=== PATIENT | male | born 1960 | race Caucasian/White ===

== ENCOUNTER → 2018-01-19 12:01 | Outpatient (CLI) | payer MEDICARE, MEDICAID, SELFPAY ==
[2018-01-19 14:01] LABS: Absolute Lymphocyte Count 1.93 X10^3/ul (0.83-4.51); Absolute Neutrophil Count 5.4 X10^3/uL (2.0-7.7); Basophil# 0.04 X10^3/uL; Basophil% 0.5 % (0-1); Eosinophil# 0.21 X10^3/uL; Eosinophils% 2.6 % (0-5); Hematocrit 43.6 % (40-54); Hemoglobin 14.8 g/dl (13.0-16.5); Lymphocyte # 1.93 X10^3/ul (4.0); Lymphocyte % 23.5 % (19-41); Mean Corp Hgb Conc 33.9 g/gl (32-36); Mean Corpuscular Hgb 31.8 pg (27.0-32.0); Mean Corpuscular Volume 93.6 fL (80-94); Mean Platelet Vol. 9.3 fl (6.2-12.0); Monocyte# 0.55 X10^3/uL; Monocyte% 6.7 % (0-10); Neutrophil # 5.43 X10^3/uL (2.7-7.7); Neutrophil % 66.1 % (47-70); Platelet Count 314 K/mm3 (150-450); RBC Distribution Width CV 12.9 % (11.6-14.6); Red Blood Count 4.66 M/mm3 (4.6-6.2); White Blood Count 8.2 K/mm3 (4.4-11.0)
[2018-01-19 14:03] LABS: POSITIVE COUNT NO; POSITIVE DIFFERENTIAL NO; POSITIVE MORPHOLOGY NO
[2018-01-19 17:55] LABS: ALB/GLOB Ratio 0.8 RATIO (0.9-2.4); AST(SGOT) 18 U/L (15-37); Alanine Aminotransfer ALT/SGPT 27 U/L (16-61); Albumin, Serum 3.7 g/dL (3.2-5.0); Alkaline Phosphatase 86 U/L (45-117); Anion Gap 9 (5-15); BUN 14 mg/dL (7-18); BUN/Creat Ratio 15.3 RATIO (10-20); Calcium,Total 9.1 mg/dL (8.5-10.1); Chloride 100 mmol/L (98-107); Creatinine, Serum 0.92 mg/dL (0.70-1.30); EST Glomerular Filtration Rate 91 mL/min (>60); Est Glom Filt Rate - Afr Amer 110 mL/min (>60); Globulin 4.8 g/dL (2.2-4.2); Glucose 219 mg/dL (74-106); PSA,Total - Annual Screen 0.54 ng/mL (0.00-4.00); Potassium 4.2 mmol/L (3.5-5.1); Protein, Total 8.5 g/dL (6.4-8.2); Sodium Level 138 mmol/L (136-145); Thyroid Stim Hormone (TSH) 1.34 uIU/mL (0.358-3.74)
[2018-01-20 08:18] LABS: Hep C Antibodies 0.2 s/co ratio (0.0-0.9)
== END ==
PROVIDERS: Family Provider Family Medicine Geriatric Medicine; PCP Family Medicine Geriatric Medicine; Visit Provider Family Medicine Geriatric Medicine
DX: E11.9 Type 2 diabetes mellitus without complications (principal); I10 Essential (primary) hypertension; Z13.89 Encounter for screening for other disorder; Z12.5 Encounter for screening for malignant neoplasm of prostate
CPT/HCPCS: 36415; 80053; 84153; 84443; 85025; 86803; G0103

== ENCOUNTER → 2018-09-21 14:18 | Outpatient (CLI) | payer MEDICARE, MEDICAID, SELFPAY ==
[2018-01-31 10:20] VITALS: BMI 29.4
[2018-09-21 15:53] LABS: Absolute Lymphocyte Count 1.53 X10^3/ul (0.83-4.51); Absolute Neutrophil Count 6.6 X10^3/uL (2.0-7.7); Basophil# 0.02 X10^3/uL; Basophil% 0.2 % (0-1); Eosinophil# 0.18 X10^3/uL; Hematocrit 41.3 % (40-54); Hemoglobin 13.6 g/dl (13.0-16.5); Lymphocyte # 1.53 X10^3/ul (4.0); Lymphocyte % 17.2 % (19-41); Mean Corp Hgb Conc 32.9 g/gl (32-36); Mean Corpuscular Hgb 30.7 pg (27.0-32.0); Mean Corpuscular Volume 93.2 fL (80-94); Mean Platelet Vol. 9.3 fl (6.2-12.0); Monocyte# 0.61 X10^3/uL; Monocyte% 6.8 % (0-10); Neutrophil # 6.56 X10^3/uL (2.7-7.7); Neutrophil % 73.7 % (47-70); Platelet Count 319 K/mm3 (150-450); RBC Distribution Width CV 13.5 % (11.6-14.6); RBC Distribution Width SD 45.6 fl (35.1-43.9); Red Blood Count 4.43 M/mm3 (4.6-6.2); White Blood Count 8.9 K/mm3 (4.4-11.0)
[2018-09-21 16:13] LABS: POSITIVE COUNT NO; POSITIVE DIFFERENTIAL NO; POSITIVE MORPHOLOGY NO
[2018-09-21 16:28] LABS: ALB/GLOB Ratio 0.8 RATIO (0.9-2.4); AST(SGOT) 18 U/L (15-37); Alanine Aminotransfer ALT/SGPT 25 U/L (16-61); Albumin, Serum 3.6 g/dL (3.2-5.0); Alkaline Phosphatase 83 U/L (45-117); Anion Gap 8 (5-15); BUN 17 mg/dL (7-18); BUN/Creat Ratio 20.8 RATIO (10-20); Calcium,Total 8.4 mg/dL (8.5-10.1); Chloride 102 mmol/L (98-107); Cholesterol 106 mg/dL (200); Creatinine, Serum 0.82 mg/dL (0.70-1.30); EST Glomerular Filtration Rate 103 mL/min (>60); Est Glom Filt Rate - Afr Amer 125 mL/min (>60); Globulin 4.6 g/dL (2.2-4.2); Glucose 210 mg/dL (74-106); High Density Lipoprotein 33 mg/dL; Potassium 4.3 mmol/L (3.5-5.1); Protein, Total 8.2 g/dL (6.4-8.2); Sodium Level 135 mmol/L (136-145); Thyroid Stim Hormone (TSH) 1.16 uIU/mL (0.358-3.74); Triglycerides 155 mg/dL; Very Low Density Lipoprotein 31 mg/dL (5-40)
--- OUTSIDE RECORDS SUMMARY | 2018-11-07 19:12 | XMS RPT_ITS ---
:1960 Author Organization OHIP Care Team Providers Name Role Phone Ruben, Chinedu Chi Attending Unavailable Ruben, Chinedu Chi Primary Care Unavailable Joelle Phillips Attending Unavailable Ruben, Chinedu Chi Referring Unavailable Ruben, Chinedu Chi Attending Unavailable Ruben, Chinedu Chi Primary Care Unavailable Jayy Ga Attending Unavailable Ruben, Chinedu Chi Referring Unavailable Eduardo Paz H Attending Unavailable Ruben, Chinedu Chi Referring Unavailable Ruben, Chinedu Chi Primary Care Unavailable Ragini Reynoso Attending Unavailable PROBLEMS PROBLEMS DATE TYPE CONDITION / CODE ATTENDING STATUS SOURCE Unknown I48.0 - Paroxysmal atrial [place], Active [place] 8 fibrillation / Jayy Community I48.0(ICD-10) Hospital Repository Unknown R55 - Syncope and Eduardo Paz Active [place] 8 collapse / R55(ICD-10) [facility] Repository Unknown I10 - Essential (primary) RoofEduardo Active [place] 8 hypertension / Community I10(ICD-10) Hospital Repository Unknown E78.00 - Pure Roof, Eduardo Higginbotham Active [place] 8 hypercholesterolemia, Community unspecified / Hospital E78.00(ICD-10) Repository Unknown E78.0 - Pure RoofEduardo Active [place] 8 hypercholesterolemia / Community E78.0(ICD-10) Hospital Repository Unknown I34.0 - Nonrheumatic Eduardo Paz Active [place] 8 mitral (valve) Community insufficiency / Hospital I34.0(ICD-10) Repository Unknown E11.9 - Type 2 diabetes Eduardo Paz Active [place] 8 mellitus without Community complications / Hospital E11.9(ICD-10) Repository PROCEDURES PROCEDURES No Procedure Records FoundRESULTS RESULTS CBC W/DIFF, AUTOMATED Collected: 09/21/2018 Status: F Source: [place] 2:20 PM [facility] REPOSITORY TYPE CODE TESTS RESULT OUT OF RANGE REFERENCE UNITS LAB L100.1000 4.4-11.0 K/mm3 Normal WBC 8.9 LAB L100.1200 4.6-6.2 M/mm3 Low RBC 4.43 LAB L100.1300 13.0-16.5 g/dl Normal HGB 13.6 LAB L100.1400 40-54 % Normal HCT 41.3 LAB L100.1500 80-94 fL Normal MCV 93.2 LAB L100.1600 27.0-32.0 pg Normal MCH 30.7 LAB L100.1700 32-36 g/gl Normal MCHC 32.9 LAB L100.1810 11.6-14.6 % Normal RDW CV 13.5 LAB L100.1820 35.1-43.9 fl High RDW SD 45.6 LAB L100.1900 150-450 K/mm3 Normal PLT 319 LAB L100.2000 6.2-12.0 fl Normal MPV 9.3 LAB L100.2100 47-70 % High NEUT% 73.7 LAB L100.2200 19-41 % Low LY% 17.2 LAB L100.2300 0-10 % Normal MONO% 6.8 LAB L100.2400 0-5 % Normal EO% 2.0 LAB L100.2500 0-1 % Normal BASO% 0.2 LAB L100.2550 0.0-0.9 % Normal IM GRAN % 0.100 Result Comment: IG% - Immature Granulocytes (promyelocytes, myelocytes and metamyelocytes) > 1% indicates that a LEFT SHIFT is Present. LAB L100.2620 2.0-7.7 X10 3/uL Normal Absolute Neut 6.6 LAB L100.2720 0.83-4.51 X10 3/ul Normal Absolute Lymph 1.53 Performed By: #### L100.0100 #### [facility] [address] [place], [place], [id number] COMPREHENSIVE METABOLIC Collected: 09/21/2018 Status: F Source: [place] MILLER 2:20 PM [facility] REPOSITORY TYPE CODE TESTS RESULT OUT OF RANGE REFERENCE UNITS LAB L501.0100 74-106 mg/dL High GLU 210 Result Comment: Glucose result greater than or equal to 200 mg/dL suggests DIABETES MELLITUS per A.D.A. criteria. Please note revised GLUCOSE reference range effective 2017. LAB L501.1000 7-18 mg/dL Normal BUN 17 LAB L501.1100 0.70-1.30 mg/dL Normal CREAT,SERUM 0.82 Result Comment: The validity of the calculated GFR AND GFRAA in patients over 70 years has not been determined. Clinical correlation is essential. LAB L501.1110 >60 mL/min Normal EST GFR 103 Result Comment: Non- GFR Calc LAB L501.1115 >60 mL/min Normal EST GFR - AA 125 Result Comment: GFR Calc LAB L501.1300 10-20 RATIO High BUN/CRE 20.8 LAB L501.1500 6.4-8.2 g/dL T Normal PROT 8.2 LAB L501.1800 3.2-5.0 g/dL Normal ALB 3.6 LAB L501.1950 2.2-4.2 g/dL High GLOB 4.6 LAB L501.2000 0.9-2.4 RATIO Low A/G 0.8 LAB L501.2200 8.5-10.1 mg/dL Low CA 8.4 LAB L501.4100 15-37 U/L Normal AST 18 LAB L501.4305 45-117 U/L Normal ALK P 83 LAB L501.4405 16-61 U/L Normal ALT 25 LAB L501.4600 0.20-1.00 mg/dL T Normal BILI 0.50 LAB L501.5300 136-145 mmol/L Low NA 135 LAB L501.5600 3.5-5.1 mmol/L K Normal 4.3 LAB L501.5900 98-107 mmol/L CL Normal 102 LAB L501.6100 21.0-32.0 mmol/L Normal CO2 25.0 LAB L501.6200 5-15 Normal GAP 8 Performed By: #### L500.4050, L500.4100, L501.9520 #### [facility] [address] [place], [place], [address] LIPID PROFILE Collected: 09/21/2018 Status: F Source: [place] 2:20 PM [facility] REPOSITORY TYPE CODE TESTS RESULT OUT OF RANGE REFERENCE UNITS LAB L501.4900 200 mg/dL Normal CHOL 106 Result Comment: <200 mg/dL Desirable 200-240 mg/dL Borderline >240 mg/dL High Risk LAB L501.5000 mg/dL Normal TRIG 155 Result Comment: The drugs N-Acetylcysteine and Metamizole may falsely depress this assay. Serum Triglycerides Reference Interval Normal <150 mg/dL Borderline high 150 - 199 mg/dL High 200 - 499 mg/dL Very High > or = 500 mg/dL LAB L501.6400 mg/dL Low HDL 33 Result Comment: The drugs N-Acetylcysteine and Metamizole may falsely depress this assay. Reference Range HDL <40 mg/dL Low HDL Cholesterol HDL >or= 60 mg/dL High HDL Cholesterol LAB L501.6500 0-130 mg/dL Normal LDL 42 LAB L501.6600 5-40 mg/dL Normal VLDL 31 Performed By: #### L500.4050, L500.4100, L501.9520 #### [facility] [address] [place], [place], [id number] THYROID STIM HORMONE Collected: 09/21/2018 Status: F Source: MA[place]ESH (TSH) 2:20 PM [facility] REPOSITORY TYPE CODE TESTS RESULT OUT OF RANGE REFERENCE UNITS LAB L501.9520 0.358-3.74 uIU/mL Normal TSH 1.16 Performed By: #### L500.4050, L500.4100, L501.9520 #### [facility] [address] [place], [place], [address] OFFICE VISIT REPORT Observed: 02/04/2018 Status: F Source: MA[place]ESH 3:19 PM [facility] REPOSITORY [facility] [address] [place] [address] OFFICE VISIT Date of Service: 02/04/18 MR#: [id number] Acct: [id number] Patient: AMNA HINSON Rep #: [id number] : 1960 Provider: Jayy Ga MD Age/Sex: 57/M Location: [facility] Status: Signed Intake Intake Visit Reasons: repeat EKG Allergies No Known Allergies Allergy (Verified 01/31/18 10:22) Medications aspirin 81 mg tablet,delayed release 81 mg PO QDAY tab 12/09/17 [History Confirmed 01/31/18] fenofibrate nanocrystallized 145 mg tablet 145 mg PO QDAY 12/09/17 [History Confirmed 01/31/18] levothyroxine 25 mcg tablet 25 mcg PO QDAY tab 12/09/17 [History Confirmed 01/31/18] metformin 1,000 mg tablet 1,000 mg PO BID 12/09/17 [History Confirmed 01/31/18] omeprazole 40 mg capsule,delayed release 40 mg PO QDAY 12/09/17 [History Confirmed 01/31/18] simvastatin 80 mg tablet 80 mg PO QDAY 12/09/17 [History Confirmed 01/31/18] sotalol 80 mg tablet 80 mg PO QDAY 12/09/17 [History Confirmed 01/31/18] Assessment AND Plan Orders Orders: Nursing Note Patient is here today for a repeat EKG due to misplacement of V1 AND V2 leads from last office visit. 02/04/18 1519 <Electronically signed by Jayy Ga MD> Date Jayy Ga MD Cosigner Signature: Date (if applicable) CC: 12 LEAD EKG PERFORMED Observed: 02/04/2018 Status: F Source: MAHESH BY POONAM 9:40 AM [facility] REPOSITORY [address] [place] [place] [address] 12 Lead EKG performed by POONAM 02/04/18 0939 MR#: [id number] Acct: [id number] Name: AMNA HINSON Rep #: [id number] : 1960 57 From: Jayy Ga MD Attending Dr: Jayy Ga MD Status: DEP AMB Ordering Dr: Jayy Ga MD Date: 02/04/18 Location: [facility] Sex: M C Admitted: [facility]12 Lead EKG performed by [facility] ECG Report Interpretation Sinus Rhythm Electronically signed on 02/04/2018 at 14:01 by Jayy Ga 02/04/18 1407 Date Jayy Ga MD CC: Chinedu Miranda MD Date Dictated: 02/04/18938 Date Transcribed: 02/04/18938 Ironworker Machine Operator: PM Signed CARDIOLOGY VISIT Observed: 01/31/2018 Status: F Source: [facility] RE[facility] 12:55 PM [facility] REPOSITORY [address] [place], [place] [address] OFFICE VISIT Date of Service: 01/31/18 MR#: [id number] Acct: [id number] Name: AMNA HINSON Rep #: [id number] : 1960 Provider: AMOS Paz Age/Sex: 57/M Location: [facility] Status: Signed HPI HPI Details: AMNA HINSON, is a 57 M who presents to the office today for a cardiovascular outpatient follow-up. He has a history of paroxysmal atrial fibrillation, syncope, mitral valve regurgitation, hypertension, hyperlipidemia, and diabetes. Pt. denies chest, arm, jaw, or neck discomfort. His exercise tolerance is stable via swimming daily. Pt. denies symptoms of CHF, palpitations, lightheadedness, dizziness, near syncope, or syncopal episodes. Pt. denies edema or claudication issues. Pt. denies orthopnea, PND, fever, chills, blood in urine, blood in stool, myalgia, or unexplainable fatigue. 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 Accompanied by: none Is patient in pain?: No Allergies No Known Allergies Allergy (Verified 01/31/18 10:22) Medications aspirin 81 mg tablet,delayed release 81 mg PO QDAY tab 12/09/17 [History Confirmed 01/31/18] fenofibrate nanocrystallized 145 mg tablet 145 mg PO QDAY 12/09/17 [History Confirmed 01/31/18] levothyroxine 25 mcg tablet 25 mcg PO QDAY tab 12/09/17 [History Confirmed 01/31/18] metformin 1,000 mg tablet 1,000 mg PO BID 12/09/17 [History Confirmed 01/31/18] omeprazole 40 mg capsule,delayed release 40 mg PO QDAY 12/09/17 [History Confirmed 01/31/18] simvastatin 80 mg tablet 80 mg PO QDAY 12/09/17 [History Confirmed 01/31/18] sotalol 80 mg tablet 80 mg PO QDAY 12/09/17 [History Confirmed 01/31/18] Ejection fraction %: 65 to 70 PFSH Medical History Hyperlipidemia (Chronic) Paroxysmal atrial fibrillation (Chronic) 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 Other Family history of hypertension Social History Smoking Status: Never smoker alcohol intake: never substance use type: does not use caffeine: No what type of physical activity do you participate in: swimming frequency: 1-2 times per week seatbelt use: always do you feel safe at home: Yes ROS Const Const: Negative for fatigue, weakness, body ache, fever(s) or chills ENT ENT: Negative for dizziness Cardio Chest Pain: No Palpitations: No Edema: None Muscle aches with walking: None Resp Respiratory: Negative for SOB with activity, SOB at rest, SOB orthopnea\SOB lying down or paroxysmal nocturnal dyspnea GI GI: Negative nausea, black,tarry stools, bright, red blood in stools or vomiting blood/hematemesis : Negative for hematuria or frequent nighttime urination/ nocturia Musc Musc: Negative for muscle aches/ myalgia Neuro Neuro: Negative for weakness, dizziness, lightheadedness, near syncope, syncope or orthostatic symptoms Endo Endo: Negative for fatigue Cardiology Exam Const Appearance: cooperative, healthy appearing, comfortable and no acute distress Orientation: alert, awake and oriented x3 Head Head: normal to inspection Mouth: oral mucosae normal Neck Neck: no JVD and normal visual inspection Carotids: normal carotid upstroke Chest Chest inspection: normal inspection of the chest and normal respiratory effort Auscultation: Bilateral: Clear to Auscultation Cardio Rate: regular rate Rhythm: regular rhythm Heart sounds: S1 normal and S2 normal; negative rub or gallop GI GI: normal to inspection Neuro General: alert, awake, oriented x3 and CN's II-XI intact bilaterally Skin Skin: no rashes or lesions noted Extremities Pulses: Normal: Right Posterior Tibial Pulse, Left Posterior Tibial Pulse, Right Radial Pulse, Left Radial Pulse Lower Extremity Edema: None: Bilateral Psych Psychological: normal affect Supplemental Info Echocardiogram from December 2007 showed an estimated ejection fraction of 65%, mild diffuse mitral valve thickening, mild mitral valve insufficiency, trivial tricuspid valve insufficiency, trivial pulmonic valve insufficiency, and an RVSP of 27 mmHg. Stress test from February 2002 was considered negative stress echocardiogram. Assessment AND Plan 1. Paroxysmal atrial fibrillation I48.0 Plan Patient's EKG done in office today showed sinus rhythm at a rate of 75 bpm. Patient will continue current medication which include antiarrhythmic. We will continue to monitor this. Orders Orders: 2. Syncope, unspecified syncope type R55 Plan Patient denies any recurrence of this. His blood pressure and heart rate are well-controlled today in office. We will continue to monitor this. 3. Essential hypertension I10 Plan Patient's blood pressure is well-controlled today in the office. We will continue to monitor this. We will not make any medication regimen changes. 4. Pure hypercholesterolemia E78.00; E78.0 Plan Patient's lipid panel from June 2017 show cholesterol: 111, HDL: 36, LDL: 2, and triglycerides: 363. Patient will repeat both liver and lipid profile at his earliest convenience. He will continue with current cholesterol-lowering medications. We will wait for results of these tests for further recommendation. 5. Nonrheumatic mitral valve regurgitation I34.0 Plan Echocardiogram from December 2017 showed estimated ejection fraction of 65%, mild diffuse mitral thickening, and mild mitral valve insufficiency. Patient denies any shortness of breath or activity intolerance. We will continue to monitor this through history, exam, and repeat echocardiogram. Patient will continue with current medications. 6. Type 2 diabetes mellitus without complication, without long-term current use of insulin E11.9 Plan Patient will continue to follow-up with primary care physician for this. Plan Detail Additional Comments Thank you for allowing us to participate in the patients plan of care, if you have any questions please do not hesitate to call. This note was generated using a voice recognition system and there may be incorrect words, spelling or punctuation that were not noted when reviewing the office note prior to saving. Follow Up 12 Months (PFM) Coding Level of Care Code Off vis,est,level 3 Diagnoses Paroxysmal atrial fibrillation I48.0 Syncope, unspecified syncope type R55 Syncope type: unspecified Essential hypertension I10 Hypertension type: essential hypertension Pure hypercholesterolemia E78.00; E78.0 Hyperlipidemia type: pure hypercholesterolemia Nonrheumatic mitral valve regurgitation I34.0 Type 2 diabetes mellitus without complication, without long- term current use of insulin E11.9 Diabetes mellitus type: type 2 Diabetes mellitus assistant terminal manager insulin use: without fpc use Diabetes mellitus complication status: without complication Coding Level of Care Code Off vis,est,level 3 Diagnoses Paroxysmal atrial fibrillation I48.0 Syncope, unspecified syncope type R55 Syncope type: unspecified Essential hypertension I10 Hypertension type: essential hypertension Pure hypercholesterolemia E78.00; E78.0 Hyperlipidemia type: pure hypercholesterolemia Nonrheumatic mitral valve regurgitation I34.0 Type 2 diabetes mellitus without complication, without long- term current use of insulin E11.9 Diabetes mellitus type: type 2 Diabetes mellitus fpc insulin use: without assistant terminal manager use Diabetes mellitus complication status: without complication 01/31/18 1255 <Electronically signed by Eduardo WRAY> Date Eduardo WRAY Cosigner Signature: Date (if applicable) CC: Chinedu Miranda MD 12 LEAD EKG PERFORMED Observed: 01/31/2018 Status: F Source: [place] BY [facility] 10:03 AM [facility] REPOSITORY [facility] [address] [place] [address] 12 Lead EKG performed by [facility] 01/31/18 1003 MR#: [id number] Acct: [id number] Name: AMNA HINSON Rep #: [id number] : 1960 57 From: Eduardo Paz LSW-C Attending Dr: Eduardo Paz NP Status: DEP AMB Ordering Dr: Eduardo PazC Date: 01/31/18 Location: [facility] Sex: M C Admitted: [facility]/12 Lead EKG performed by [facility] ECG Report Interpretation Sinus Rhythm Consider precordial lead misplacement (V1-V2)Consider repeat ECG ABNORMAL Electronically signed on 02/02/2018 at 17:17 by Jayy Ga 02/02/18 5331 Date Eduardo Paz LSW-C CC: Chinedu Miranda MD Date Dictated: 01/31/18 100 Date Transcribed: 01/31/18 100 Ironworker Machine Operator: LENORE Signed CBC W/DIFF, AUTOMATED Collected: 01/19/2018 Status: F Source: [place] 12:04 PM [facility] REPOSITORY TYPE CODE TESTS RESULT OUT OF RANGE REFERENCE UNITS LAB L100.1000 4.4-11.0 K/mm3 Normal WBC 8.2 LAB L100.1200 4.6-6.2 M/mm3 Normal RBC 4.66 LAB L100.1300 13.0-16.5 g/dl Normal HGB 14.8 LAB L100.1400 40-54 % Normal HCT 43.6 LAB L100.1500 80-94 fL Normal MCV 93.6 LAB L100.1600 27.0-32.0 pg Normal MCH 31.8 LAB L100.1700 32-36 g/gl Normal MCHC 33.9 LAB L100.1810 11.6-14.6 % Normal RDW CV 12.9 LAB L100.1820 35.1-43.9 fl Normal RDW SD 43.0 LAB L100.1900 150-450 K/mm3 Normal PLT 314 LAB L100.2000 6.2-12.0 fl Normal MPV 9.3 LAB L100.2100 47-70 % Normal NEUT% 66.1 LAB L100.2200 19-41 % Normal LY% 23.5 LAB L100.2300 0-10 % Normal MONO% 6.7 LAB L100.2400 0-5 % Normal EO% 2.6 LAB L100.2500 0-1 % Normal BASO% 0.5 LAB L100.2550 0.0-0.9 % Normal IM GRAN % 0.600 Result Comment: IG% - Immature Granulocytes (promyelocytes, myelocytes and metamyelocytes) > 1% indicates that a LEFT SHIFT is Present. LAB L100.2620 2.0-7.7 X10 3/uL Normal Absolute Neut 5.4 LAB L100.2720 0.83-4.51 X10 3/ul Normal Absolute Lymph 1.93 Performed By: #### L100.0100 #### [facility] [address] [place], [place], [address] COMPREHENSIVE METABOLIC Collected: 01/19/2018 Status: F Source: [facility] 12:04 PM [facility] REPOSITORY TYPE CODE TESTS RESULT OUT OF RANGE REFERENCE UNITS LAB L501.0100 74-106 mg/dL High GLU 219 Result Comment: Glucose result greater than or equal to 200 mg/dL suggests DIABETES MELLITUS per A.D.A. criteria. Please note revised GLUCOSE reference range effective 2017. LAB L501.1000 7-18 mg/dL Normal BUN 14 LAB L501.1100 0.70-1.30 mg/dL Normal CREAT,SERUM 0.92 Result Comment: The validity of the calculated GFR AND GFRAA in patients over 70 years has not been determined. Clinical correlation is essential. LAB L501.1110 >60 mL/min Normal EST GFR 91 Result Comment: Non- GFR Calc LAB L501.1115 >60 mL/min Normal EST GFR - AA 110 Result Comment: GFR Calc LAB L501.1300 10-20 RATIO Normal BUN/CRE 15.3 LAB L501.1500 6.4-8.2 g/dL High T PROT 8.5 LAB L501.1800 3.2-5.0 g/dL Normal ALB 3.7 LAB L501.1950 2.2-4.2 g/dL High GLOB 4.8 LAB L501.2000 0.9-2.4 RATIO Low A/G 0.8 LAB L501.2200 8.5-10.1 mg/dL CA Normal 9.1 LAB L501.4100 15-37 U/L Normal AST 18 LAB L501.4305 45-117 U/L Normal ALK P 86 LAB L501.4405 16-61 U/L Normal ALT 27 Result Comment: Please note revised ALT reference range effective 2017. LAB L501.4600 0.20-1.00 mg/dL Normal T BILI 0.30 LAB L501.5300 136-145 mmol/L Normal NA 138 LAB L501.5600 3.5-5.1 mmol/L Normal K 4.2 LAB L501.5900 98-107 mmol/L Normal CL 100 LAB L501.6100 21.0-32.0 mmol/L Normal CO2 29.0 LAB L501.6200 5-15 Normal GAP 9 Performed By: #### L500.4050, L501.9520, L501.9910 #### [facility] [address] [place], [place], [id number] THYROID STIM HORMONE Collected: 01/19/2018 Status: F Source: [facility] (TSH) 12:04 PM [facility] REPOSITORY TYPE CODE TESTS RESULT OUT OF RANGE REFERENCE UNITS LAB L501.9520 0.358-3.74 uIU/mL Normal TSH 1.34 Performed By: #### L500.4050, L501.9520, L501.9910 #### [facility] [address] [place], [place], [address] PSA,TOTAL - ANNUAL Collected: 01/19/2018 Status: F Source: [place] SCREEN 12:04 PM [facility] REPOSITORY TYPE CODE TESTS RESULT OUT OF RANGE REFERENCE UNITS LAB L501.9910 0.00-4.00 ng/mL Normal PSA,TOT 0.54 SCREEN Result Comment: This test was performed using the TPSA assay method for the Search[employer] chemistry system. Values obtained with different assay methods cannot be used interchangably. When changing PSA assays in the course of monitoring a patient, additional sequential testing should be carried out to confirm baseline values. Performed By: #### L500.4050, L501.9520, L501.9910 #### [facility] [address] [place], [address] HEPATITIS C ANTIBODIES Collected: 01/19/2018 Status: F Source: [place] 12:04 PM [facility] REPOSITORY TYPE CODE TESTS RESULT OUT OF RANGE REFERENCE UNITS LAB L3100.0650 0.0-0.9 s/co ratio Normal HEP C AB 0.2 Result Comment: Negative: < 0.8 Indeterminate: 0.8 - 0.9 Positive: > 0.9 The CDC recommends that a positive HCV antibody result be followed up with a HCV Nucleic Acid Amplification test (547997). Performed at: - [facility] [id number] Blunger Machine Operator: Prince Arciniega PhD, Phone: [phone] Performed By: #### L3100.0625 #### [facility] (refer to report for specific site) refer to report for address and phone number ALLERGIES ALLERGIES DATE TYPE / CODE NAME / CODE REACTION SEVERITY SOURCE 01/31/2018 Drug No Known Unknown [facility] Allergy/4160 Allergies/F00 Hospital 89000(SNOMED 5963852(RXNOR Repository CT) M) ENCOUNTERS ENCOUNTERS ADMIT/DISCHARGE ACCOUNT ADMITTING ENCOUNTER LOCATION SOURCE NUMBER CLASS 09/21/2018 [id number] Ambulatory [place] 4 [facility] ing:POLAB3 Repository 02/04/2018/ [id number] Ambulatory BMSBuilding:B [place] 8 4 [place] Repository 01/31/2018/ [id number] Ambulatory BMSBuilding:B [place] 8 6 [place] Repository 01/25/2018 [id number] Ambulatory BMS [place] 9 [facility] Repository 01/19/2018 [id number] Ambulatory [place] 7 [facility] ing:POLAB3 Repository 12/14/2017 [id number] Ambulatory BMSBuilding:B [place] 9 [place] Repository PAYERS PAYERS ENCOUNTER GUARANTOR PAYER SUBSCRIBER SOURCE 09/21/2018 AMNA A Primary AMNA [place] [id number] Insurance:HUMANA BUTLERDOB[facility] [id number] Number: Repository [address]Vih: 330 [id number] [phone] () Date:[id number] [address] [address]UR: 09/21/2018 Secondary AMNA A [place] Insurance:MEDICAIDPol BUTLERDOB: [facility] icy Number: [id number] Hospital [id number] Repository Date:2018-09-21 09/21/2018 Tertiary NOT GIVENUNK [place] Insurance:SELF PAY [facility] Number: Effective Repository Date:2018-09-21 02/04/2018 AMNA A Primary AMNA [place] [id number] Insurance:HUMANA BUTLERDOB: Community [place] MEDICARE PPOPolicy [id number] Number: Repository [id number]: 330 [id number] [phone] (HP) Date:[id number] [address] [address]PN: 02/04/2018 Secondary AMNA A [place] Insurance:MEDICAIDPol BUTLERDOB: [facility] icy Number: [id number] Hospital [id number] Repository Date:2018-02-03 02/04/2018 Tertiary NOT GIVENUNK [place] Insurance:SELF PAY [facility] Number: Effective Repository Date:2018-02-04 01/31/2018 AMNA A Primary AMNA [address] [id number] Insurance:HUMANA BUTLERDOB: Community [place] MEDIC[facility] [id number] Number: Repository [id number]: 330 [id number] [phone] (HP) Date:[id number] [address] [address]QL: 01/31/2018 Secondary AMNA A Mahesh Insurance:MEDICAIDPol BUTLERDOB: Community icy Number: [id number] [id number] Repository Date:2018-01-18 01/31/2018 Tertiary NOT GIVENUNK Mahesh Insurance:SELF PAY [facility] Number: Effective Repository Date:2018-01-31 01/25/2018 Amna A Primary Amna A Eaton [id number] Insurance:HUMANA ButlerDOB: [facility] MEDICARE [facility] [id number] Number[place] Repository [id number]: [phone] [id number] [phone] (HP) Date:[id number] [address] [address]SZ: 01/25/2018 Secondary Amna A Eaton Insurance:MEDICAIDPol ButlerDOB: Community icy Number: [id number] [id number] Repository Date:2018-01-25 01/25/2018 Tertiary NOT GIVENUNK [place] Insurance:SELF PAY [facility] Number: Effective Repository Date:2018-01-25 01/19/2018 Amna A Primary Amna A Eaton [id number] Insurance:HUMANA ButlerDOB: [facility] MEDICARE [facility] [id number] Number: Repository [id number]: [phone] [id number] [phone] (HP) Date:[id number] [address] [address]RM: 01/19/2018 Secondary Amna A Eaton Insurance:MEDICAIDPol ButlerDOB: Community icy Number: [id number] [facility] [id number] Repository Date:2018-01-19 01/19/2018 Tertiary NOT GIVENUNK Mahesh Insurance:SELF PAY [facility]: Effective Repository Date:2018-01-19 12/14/2017 Amna A Primary Amna Murray [id number] Insurance:HUMANA ButlerDOB: Community [facility] MEDICARE [facility] [id number] Number: Repository [id number]: [phone] [id number] [phone] () Date:[id number] [address]XR: 12/14/2017 Secondary Amna Murray Insurance:MEDICAIDPol ButlerDOB: Community icy Number: [id number] [id number] Repository Date:2017-09-16 12/14/2017 Tertiary NOT GIVENUNK Mahesh Insurance:SELF PAY [facility] Number: Effective Repository Date:2017-09-16
== END ==
PROVIDERS: Family Provider Family Medicine Geriatric Medicine; PCP Family Medicine Geriatric Medicine; Visit Provider Family Medicine Geriatric Medicine
DX: E11.9 Type 2 diabetes mellitus without complications (principal); E78.5 Hyperlipidemia, unspecified
CPT/HCPCS: 36415; 80053; 80061; 84443; 85025

== ENCOUNTER → 2018-12-21 13:26 | Outpatient (CLI) | payer MEDICARE, SELFPAY ==
[2018-01-31 10:20] VITALS: BMI 29.4
[2018-12-21 17:17] LABS: Absolute Lymphocyte Count 1.38 X10^3/ul (0.83-4.51); Absolute Neutrophil Count 4.7 X10^3/uL (2.0-7.7); Basophil# 0.03 X10^3/uL; Basophil% 0.4 % (0-1); Eosinophil# 0.18 X10^3/uL; Eosinophils% 2.6 % (0-5); Hematocrit 38.7 % (40-54); Hemoglobin 12.2 g/dl (13.0-16.5); Lymphocyte # 1.38 X10^3/ul (4.0); Lymphocyte % 20.2 % (19-41); Mean Corp Hgb Conc 31.5 g/gl (32-36); Mean Corpuscular Volume 95.1 fL (80-94); Mean Platelet Vol. 9.4 fl (6.2-12.0); Monocyte# 0.54 X10^3/uL; Monocyte% 7.9 % (0-10); Neutrophil # 4.69 X10^3/uL (2.7-7.7); Neutrophil % 68.8 % (47-70); Platelet Count 307 K/mm3 (150-450); RBC Distribution Width CV 13.6 % (11.6-14.6); RBC Distribution Width SD 46.5 fl (35.1-43.9); Red Blood Count 4.07 M/mm3 (4.6-6.2); White Blood Count 6.8 K/mm3 (4.4-11.0)
[2018-12-21 17:18] LABS: POSITIVE COUNT NO; POSITIVE DIFFERENTIAL NO; POSITIVE MORPHOLOGY NO
[2018-12-21 17:52] LABS: ALB/GLOB Ratio 0.7 RATIO (0.9-2.4); AST(SGOT) 14 U/L (15-37); Alanine Aminotransfer ALT/SGPT 19 U/L (16-61); Albumin, Serum 3.3 g/dL (3.2-5.0); Alkaline Phosphatase 74 U/L (45-117); Anion Gap 8 (5-15); BUN 13 mg/dL (7-18); BUN/Creat Ratio 15.7 RATIO (10-20); Calcium,Total 8.2 mg/dL (8.5-10.1); Chloride 104 mmol/L (98-107); Cholesterol 100 mg/dL (200); Creatinine, Serum 0.83 mg/dL (0.70-1.30); EST Glomerular Filtration Rate 102 mL/min (>60); Est Glom Filt Rate - Afr Amer 123 mL/min (>60); Globulin 4.7 g/dL (2.2-4.2); Glucose 186 mg/dL (74-106); High Density Lipoprotein 34 mg/dL; Sodium Level 139 mmol/L (136-145); Thyroid Stim Hormone (TSH) 0.88 uIU/mL (0.358-3.74); Triglycerides 122 mg/dL; Very Low Density Lipoprotein 24 mg/dL (5-40)
== END ==
PROVIDERS: Family Provider Family Medicine Geriatric Medicine; PCP Family Medicine Geriatric Medicine; Visit Provider Family Medicine Geriatric Medicine
DX: E11.9 Type 2 diabetes mellitus without complications (principal); I10 Essential (primary) hypertension; E78.5 Hyperlipidemia, unspecified
CPT/HCPCS: 36415; 80053; 80061; 84443; 85025

== ENCOUNTER → 2019-02-02 15:15 | Outpatient (CLI) | payer MEDICARE, SELFPAY ==
[2018-01-31 10:20] VITALS: BMI 29.4
[2019-05-03 11:27] LABS: Absolute Lymphocyte Count 1.59 X10^3/uL (0.83-4.51); Absolute Neutrophil Count 7.9 X10^3/uL (2.0-7.7); Basophil# 0.05 X10^3/uL; Basophil% 0.5 % (0-1); Eosinophil# 0.34 X10^3/uL; Eosinophils% 3.2 % (0-5); Hematocrit 40.3 % (40-54); Hemoglobin 13.1 g/dL (13.0-16.5); Lymphocyte # 1.59 X10^3/ul (4.0); Lymphocyte % 15.1 % (19-41); Mean Corp Hgb Conc 32.5 g/dL (32-36); Mean Corpuscular Volume 95.3 fL (80-94); Mean Platelet Vol. 9.3 fl (6.2-12.0); Monocyte% 5.7 % (0-10); NRBC Flagged by Analyzer 0 % (0-5); Neutrophil # 7.89 X10^3/uL (2.7-7.7); Neutrophil % 74.7 % (47-70); Platelet Count 356 K/mm3 (150-450); RBC Distribution Width CV 13.6 % (11.6-14.6); RBC Distribution Width SD 46.9 fl (35.1-43.9); Red Blood Count 4.23 M/mm3 (4.6-6.2); White Blood Count 10.6 K/mm3 (4.4-11.0)
[2019-05-03 11:56] LABS: ALB/GLOB Ratio 0.8 RATIO (0.9-2.4); AST(SGOT) 17 U/L (15-37); Alanine Aminotransfer ALT/SGPT 21 U/L (16-61); Albumin, Serum 2.9 g/dL (3.2-5.0); Alkaline Phosphatase 50 U/L (45-117); Anion Gap 4 (5-15); BUN 11 mg/dL (7-18); BUN/Creat Ratio 15.2 RATIO (10-20); Calcium,Total 8.1 mg/dL (8.5-10.1); Chloride 105 mmol/L (98-107); Cholesterol 73 mg/dL (200); Creatinine, Serum 0.72 mg/dL (0.70-1.30); EST Glomerular Filtration Rate 119 mL/min (>60); Est Glom Filt Rate - Afr Amer 144 mL/min (>60); Globulin 3.8 g/dL (2.2-4.2); Glucose 50 mg/dL (74-106); High Density Lipoprotein 31 mg/dL; Potassium 3.6 mmol/L (3.5-5.1); Protein, Total 6.7 g/dL (6.4-8.2); Sodium Level 140 mmol/L (136-145); Triglycerides 86 mg/dL; Very Low Density Lipoprotein 17 mg/dL (5-40)
== END ==
LOC: POLAB3 15:16
PROVIDERS: Family Provider Family Medicine Geriatric Medicine; PCP Family Medicine Geriatric Medicine; Visit Provider Family Medicine Geriatric Medicine
DX: E11.9 Type 2 diabetes mellitus without complications (principal); E78.5 Hyperlipidemia, unspecified; I10 Essential (primary) hypertension; Z12.5 Encounter for screening for malignant neoplasm of prostate
CPT/HCPCS: 36415; 80053; 80061; 84153; 84443; 85025; G0103

== ENCOUNTER → 2019-02-09 18:07 | Outpatient (CLI) | payer MEDICARE, SELFPAY ==
[2018-01-31 10:20] VITALS: BMI 29.4
[2019-02-09 21:15] LABS: M R Staph aureus DNA By PCR Negative (Negative); Probe Check PASS; Staph aureus DNA By PCR POSITIVE (Negative)
== END ==
PROVIDERS: Family Provider Family Medicine Geriatric Medicine; PCP Family Medicine Geriatric Medicine; Referring Provider Podiatrist; Visit Provider Podiatrist
DX: L60.0 Ingrowing nail (principal)
CPT/HCPCS: 87070; 87075; 87077; 87186; 87205; 87640

== ENCOUNTER → 2019-05-03 08:57 | Outpatient (CLI) | payer MEDICARE, MEDICAID, SELFPAY ==
[2019-02-02 15:57] LABS: Absolute Lymphocyte Count 1.62 X10^3/ul (0.83-4.51); Basophil# 0.03 X10^3/uL; Basophil% 0.4 % (0-1); Eosinophil# 0.16 X10^3/uL; Eosinophils% 2.1 % (0-5); Hematocrit 40.8 % (40-54); Hemoglobin 13.4 g/dl (13.0-16.5); Lymphocyte # 1.62 X10^3/ul (4.0); Lymphocyte % 21.7 % (19-41); Mean Corp Hgb Conc 32.8 g/gl (32-36); Mean Corpuscular Hgb 29.9 pg (27.0-32.0); Mean Corpuscular Volume 91.1 fL (80-94); Mean Platelet Vol. 9.5 fl (6.2-12.0); Monocyte# 0.57 X10^3/uL; Monocyte% 7.7 % (0-10); Neutrophil # 5.04 X10^3/uL (2.7-7.7); Neutrophil % 67.7 % (47-70); POSITIVE COUNT NO; POSITIVE DIFFERENTIAL NO; POSITIVE MORPHOLOGY NO; Platelet Count 304 K/mm3 (150-450); RBC Distribution Width CV 13.6 % (11.6-14.6); Red Blood Count 4.48 M/mm3 (4.6-6.2); White Blood Count 7.5 K/mm3 (4.4-11.0)
[2019-02-02 16:22] LABS: ALB/GLOB Ratio 0.8 RATIO (0.9-2.4); AST(SGOT) 19 U/L (15-37); Alanine Aminotransfer ALT/SGPT 22 U/L (16-61); Albumin, Serum 3.5 g/dL (3.2-5.0); Alkaline Phosphatase 74 U/L (45-117); Anion Gap 6 (5-15); BUN 13 mg/dL (7-18); BUN/Creat Ratio 14.7 RATIO (10-20); Calcium,Total 8.7 mg/dL (8.5-10.1); Chloride 104 mmol/L (98-107); Cholesterol 91 mg/dL (200); Creatinine, Serum 0.89 mg/dL (0.70-1.30); EST Glomerular Filtration Rate 94 mL/min (>60); Est Glom Filt Rate - Afr Amer 114 mL/min (>60); Globulin 4.5 g/dL (2.2-4.2); Glucose 149 mg/dL (74-106); High Density Lipoprotein 32 mg/dL; PSA,Total - Annual Screen 0.64 ng/mL (0.00-4.00); Sodium Level 140 mmol/L (136-145); Thyroid Stim Hormone (TSH) 0.67 uIU/mL (0.358-3.74); Triglycerides 108 mg/dL; Very Low Density Lipoprotein 22 mg/dL (5-40)
[2019-03-03 10:17] VITALS: BMI 27.3
== END ==
PROVIDERS: Family Provider Family Medicine Geriatric Medicine; PCP Family Medicine Geriatric Medicine; Visit Provider Family Medicine Geriatric Medicine
DX: E11.9 Type 2 diabetes mellitus without complications (principal); E78.5 Hyperlipidemia, unspecified; I10 Essential (primary) hypertension; Z12.5 Encounter for screening for malignant neoplasm of prostate
CPT/HCPCS: 36415; 80053; 80061; 84153; 84443; 85025; G0103

== ENCOUNTER → 2019-08-01 14:19 | Outpatient (CLI) | payer MEDICARE, SELFPAY ==
[2019-03-03 10:17] VITALS: BMI 27.3
[2019-08-01 16:56] LABS: Absolute Lymphocyte Count 1.84 X10^3/uL (0.83-4.51); Absolute Neutrophil Count 6.5 X10^3/uL (2.0-7.7); Basophil# 0.03 X10^3/uL; Basophil% 0.3 % (0-1); Eosinophil# 0.31 X10^3/uL; Eosinophils% 3.3 % (0-5); Hemoglobin 13.2 g/dL (13.0-16.5); Lymphocyte # 1.84 X10^3/ul (4.0); Lymphocyte % 19.5 % (19-41); Mean Corpuscular Hgb 31.4 pg (27.0-32.0); Mean Corpuscular Volume 95.2 fL (80-94); Mean Platelet Vol. 9.8 fl (6.2-12.0); Monocyte# 0.75 X10^3/uL; Monocyte% 7.9 % (0-10); NRBC Flagged by Analyzer 0 % (0-5); Neutrophil # 6.49 X10^3/uL (2.7-7.7); Neutrophil % 68.7 % (47-70); Platelet Count 277 K/mm3 (150-450); RBC Distribution Width CV 13.6 % (11.6-14.6); RBC Distribution Width SD 47.5 fl (35.1-43.9); White Blood Count 9.5 K/mm3 (4.4-11.0)
[2019-08-01 17:15] LABS: ALB/GLOB Ratio 0.9 RATIO (0.9-2.4); AST(SGOT) 16 U/L (15-37); Alanine Aminotransfer ALT/SGPT 24 U/L (16-61); Albumin, Serum 3.5 g/dL (3.2-5.0); Alkaline Phosphatase 64 U/L (45-117); Anion Gap 5 (5-15); BUN 14 mg/dL (7-18); BUN/Creat Ratio 15.6 RATIO (10-20); Calcium,Total 8.4 mg/dL (8.5-10.1); Chloride 104 mmol/L (98-107); Cholesterol 89 mg/dL (200); EST Glomerular Filtration Rate 92 mL/min (>60); Est Glom Filt Rate - Afr Amer 112 mL/min (>60); Glucose 87 mg/dL (74-106); High Density Lipoprotein 35 mg/dL; Potassium 4.4 mmol/L (3.5-5.1); Protein, Total 7.5 g/dL (6.4-8.2); Sodium Level 139 mmol/L (136-145); Thyroid Stim Hormone (TSH) 1.16 uIU/mL (0.358-3.74); Triglycerides 98 mg/dL; Very Low Density Lipoprotein 20 mg/dL (5-40)
== END ==
PROVIDERS: Family Provider Family Medicine Geriatric Medicine; PCP Family Medicine Geriatric Medicine; Visit Provider Family Medicine Geriatric Medicine
DX: E11.9 Type 2 diabetes mellitus without complications (principal); E78.5 Hyperlipidemia, unspecified; I10 Essential (primary) hypertension
CPT/HCPCS: 36415; 80053; 80061; 84443; 85025

== ENCOUNTER → 2019-10-30 15:06 | Outpatient (CLI) | payer MEDICARE, MEDICAID, SELFPAY ==
[2019-03-03 10:17] VITALS: BMI 27.3
[2019-10-30 17:06] LABS: Absolute Lymphocyte Count 1.81 X10^3/uL (0.83-4.51); Absolute Neutrophil Count 18.4 X10^3/uL (2.0-7.7); Basophil# 0.09 X10^3/uL; Basophil% 0.4 % (0-1); Eosinophil# 0.38 X10^3/uL; Eosinophils% 1.7 % (0-5); Hematocrit 43.2 % (40-54); Hemoglobin 13.9 g/dL (13.0-16.5); Lymphocyte # 1.81 X10^3/ul (4.0); Lymphocyte % 8.1 % (19-41); Mean Corp Hgb Conc 32.2 g/dL (32-36); Mean Corpuscular Hgb 30.9 pg (27.0-32.0); Mean Platelet Vol. 9.4 fl (6.2-12.0); Monocyte# 1.35 X10^3/uL; NRBC Flagged by Analyzer 0 % (0-5); Neutrophil # 18.35 X10^3/uL (2.7-7.7); Platelet Count 406 K/mm3 (150-450); RBC Distribution Width CV 13.6 % (11.6-14.6); RBC Distribution Width SD 46.9 fl (35.1-43.9); White Blood Count 22.4 K/mm3 (4.4-11.0)
[2019-10-30 17:52] LABS: ALB/GLOB Ratio 0.8 RATIO (0.9-2.4); AST(SGOT) 18 U/L (15-37); Alanine Aminotransfer ALT/SGPT 27 U/L (16-61); Albumin, Serum 3.5 g/dL (3.2-5.0); Alkaline Phosphatase 76 U/L (45-117); Anion Gap 6 (5-15); BUN 18 mg/dL (7-18); BUN/Creat Ratio 19.3 RATIO (10-20); Calcium,Total 9.3 mg/dL (8.5-10.1); Chloride 102 mmol/L (98-107); Cholesterol 173 mg/dL (200); Creatinine, Serum 0.94 mg/dL (0.70-1.30); EST Glomerular Filtration Rate 88 mL/min (>60); Est Glom Filt Rate - Afr Amer 107 mL/min (>60); Globulin 4.6 g/dL (2.2-4.2); Glucose 118 mg/dL (74-106); High Density Lipoprotein 43 mg/dL; Potassium 4.2 mmol/L (3.5-5.1); Protein, Total 8.1 g/dL (6.4-8.2); Sodium Level 137 mmol/L (136-145); Thyroid Stim Hormone (TSH) 1.73 uIU/mL (0.358-3.74); Triglycerides 223 mg/dL; Very Low Density Lipoprotein 45 mg/dL (5-40)
== END ==
PROVIDERS: PCP Family Medicine Geriatric Medicine; Visit Provider Family Medicine Geriatric Medicine
DX: E11.9 Type 2 diabetes mellitus without complications (principal); E78.5 Hyperlipidemia, unspecified; I10 Essential (primary) hypertension
CPT/HCPCS: 36415; 80053; 80061; 84443; 85025

== ENCOUNTER → 2019-11-28 10:50 | Outpatient (CLI) | payer MEDICARE, MEDICAID, SELFPAY ==
[2019-03-03 10:17] VITALS: BMI 27.3
[2019-11-28 12:38] LABS: Absolute Lymphocyte Count 1.36 X10^3/uL (0.83-4.51); Absolute Neutrophil Count 6.3 X10^3/uL (2.0-7.7); Basophil# 0.06 X10^3/uL; Basophil% 0.7 % (0-1); Eosinophil# 0.18 X10^3/uL; Eosinophils% 2.1 % (0-5); Hematocrit 42.1 % (40-54); Hemoglobin 13.6 g/dL (13.0-16.5); Lymphocyte # 1.36 X10^3/ul (4.0); Lymphocyte % 16.1 % (19-41); Mean Corp Hgb Conc 32.3 g/dL (32-36); Mean Corpuscular Hgb 30.6 pg (27.0-32.0); Mean Corpuscular Volume 94.6 fL (80-94); Mean Platelet Vol. 9.3 fl (6.2-12.0); Monocyte# 0.45 X10^3/uL; Monocyte% 5.3 % (0-10); NRBC Flagged by Analyzer 0 % (0-5); Neutrophil # 6.34 X10^3/uL (2.7-7.7); Neutrophil % 75.3 % (47-70); Platelet Count 267 K/mm3 (150-450); RBC Distribution Width CV 14.2 % (11.6-14.6); RBC Distribution Width SD 48.5 fl (35.1-43.9); Red Blood Count 4.45 M/mm3 (4.6-6.2); White Blood Count 8.4 K/mm3 (4.4-11.0)
== END ==
PROVIDERS: PCP Family Medicine Geriatric Medicine; Visit Provider Family Medicine Geriatric Medicine
DX: D64.9 Anemia, unspecified (principal)
CPT/HCPCS: 36415; 85025

== ENCOUNTER → 2020-02-06 15:22 | Outpatient (CLI) | payer MEDICARE, MEDICAID, SELFPAY ==
[2019-03-03 10:17] VITALS: BMI 27.3
[2020-02-06 16:53] LABS: Absolute Lymphocyte Count 2.54 X10^3/uL (0.83-4.51); Absolute Neutrophil Count 5.9 X10^3/uL (2.0-7.7); Basophil# 0.05 X10^3/uL; Basophil% 0.5 % (0-1); Eosinophil# 0.33 X10^3/uL; Eosinophils% 3.4 % (0-5); Hematocrit 41.6 % (40-54); Hemoglobin 13.4 g/dL (13.0-16.5); Lymphocyte # 2.54 X10^3/ul (4.0); Lymphocyte % 26.4 % (19-41); Mean Corp Hgb Conc 32.2 g/dL (32-36); Mean Corpuscular Hgb 30.2 pg (27.0-32.0); Mean Corpuscular Volume 93.7 fL (80-94); Mean Platelet Vol. 9.4 fl (6.2-12.0); Monocyte# 0.75 X10^3/uL; Monocyte% 7.8 % (0-10); NRBC Flagged by Analyzer 0 % (0-5); Neutrophil # 5.91 X10^3/uL (2.7-7.7); Neutrophil % 61.6 % (47-70); Platelet Count 286 K/mm3 (150-450); RBC Distribution Width CV 13.9 % (11.6-14.6); RBC Distribution Width SD 47.5 fl (35.1-43.9); Red Blood Count 4.44 M/mm3 (4.6-6.2); White Blood Count 9.6 K/mm3 (4.4-11.0)
[2020-02-06 17:27] LABS: ALB/GLOB Ratio 0.9 RATIO (0.9-2.4); AST(SGOT) 21 U/L (15-37); Alanine Aminotransfer ALT/SGPT 24 U/L (16-61); Albumin, Serum 3.7 g/dL (3.2-5.0); Alkaline Phosphatase 54 U/L (45-117); Anion Gap 6 (5-15); BUN 14 mg/dL (7-18); BUN/Creat Ratio 17.8 RATIO (10-20); Calcium,Total 8.9 mg/dL (8.5-10.1); Chloride 108 mmol/L (98-107); Cholesterol 87 mg/dL (200); Creatinine, Serum 0.79 mg/dL (0.70-1.30); EST Glomerular Filtration Rate 107 mL/min (>60); Est Glom Filt Rate - Afr Amer 130 mL/min (>60); Globulin 3.9 g/dL (2.2-4.2); Glucose 108 mg/dL (74-106); High Density Lipoprotein 35 mg/dL; PSA,Total - Annual Screen 0.48 ng/mL (0.00-4.00); Potassium 3.9 mmol/L (3.5-5.1); Protein, Total 7.6 g/dL (6.4-8.2); Sodium Level 141 mmol/L (136-145); Thyroid Stim Hormone (TSH) 1.02 uIU/mL (0.358-3.74); Triglycerides 85 mg/dL; Very Low Density Lipoprotein 17 mg/dL (5-40)
== END ==
PROVIDERS: PCP Family Medicine Geriatric Medicine; Visit Provider Family Medicine Geriatric Medicine
DX: E11.9 Type 2 diabetes mellitus without complications (principal); E78.5 Hyperlipidemia, unspecified; I10 Essential (primary) hypertension; Z12.5 Encounter for screening for malignant neoplasm of prostate
CPT/HCPCS: 36415; 80053; 80061; 84153; 84443; 85025; G0103

== ENCOUNTER → 2020-04-02 12:09 | Outpatient (CLI) | payer MEDICARE, MEDICAID, SELFPAY ==
[2020-03-06 14:44] VITALS: BMI 28.1
--- NOTE | 2020-04-02 12:09 | ECHOD_ITS ---
Reason For Study: AFIB Procedure This was a 2D Doppler, Color Flow transthoracic echocardiogram. The exam was of adequate technical quality. Exam performed in department. Left Ventricle Normal LV size. Left ventricular systolic function is normal. The estimated ejection fraction is 55 %. Unable to assess diastolic dysfunction. No regional wall motion abnormalities noted. Right Ventricle Normal RV size. Normal systolic function. Atria Normal left atrium. Normal right atrium. No doppler evidence for ASD. Mitral Valve There is no mitral annular calcification. Mild diffuse mitral valve thickening. Moderate (2+) mitral valve insufficiency. Tricuspid Valve Normal tricuspid valve. Mild tricuspid valve insufficiency. Right ventricular systolic pressure estimated to be 31 mmHg. Aortic Valve Trisinus/trileaflet aortic valve. Normal aortic valve. Pulmonic Valve The pulmonic valve is not well visualized. Great Vessels Normal sized aortic root. Pericardium/Pleural No pericardial effusion. MMode/2D Measurements & Calculations LVIDd: 5.1 cm IVSd: 1.1 cm Ao root diam: 3.5 cm LVIDs: 3.4 cm LVPWd: 1.1 cm RVDd: 3.7 cm FS: 32.5 % LAV(MOD-bp): 54.0 ml LA A4 area: 17.8 cm2 LA dimension(2D): 3.7 cm LAV(MOD-bp) Indexed: 28.0 ml/m2 LAV(MOD-sp2): 59.6 ml LAV(MOD-sp4): 44.9 ml RA A4 area: 15.9 cm2 Time Measurements MV dec time: 0.17 sec Doppler Measurements & Calculations MV E max hipolito: 96.6 cm/sec Ao V2 max: 100.6 cm/sec LV V1 max: 69.5 cm/sec Ao max P.1 mmHg LV V1 max P.9 mmHg TR max hipolito: 266.3 cm/sec TR max P.4 mmHg Interpretation Summary Left ventricular systolic function is normal. The estimated ejection fraction is 55 %. Mild diffuse mitral valve thickening. Moderate (2+) mitral valve insufficiency. Mild tricuspid valve insufficiency. Right ventricular systolic pressure estimated to be 31 mmHg. Unable to assess diastolic dysfunction. Ordering Physician: Jayy Ga Referring Physician: NEO VALERIO Performed By: Vira Mccrary, RDCS, RVT
== END ==
PROVIDERS: PCP Family Medicine Geriatric Medicine; Referring Provider Internal Medicine Cardiovascular Disease; Visit Provider Internal Medicine Cardiovascular Disease
DX: I48.0 Paroxysmal atrial fibrillation (principal)
CPT/HCPCS: 93306

== ENCOUNTER 2020-05-07 11:34 | Day surgery (SDC) | payer MEDICARE, MEDICAID, SELFPAY ==
[2020-04-10 11:09] VITALS: BMI 28.1
--- NOTE | 2020-05-02 10:09 | RAD_ITS ---
STUDY: X-RAY CHEST REASON FOR EXAM: Male, 59 years old. Tachycardia, hypertension, pre cardioversion TECHNIQUE: PA and lateral views of the chest. COMPARISON: None. FINDINGS: The lungs are clear and expanded. There is no demonstrated pleural abnormality. Normal size heart. Normal mediastinum and bisi. Normal visualized pulmonary arteries. Normal visualized aortic arch and descending thoracic aorta. Normal visualized thoracic spine. Normal visualized ribs, clavicles, and shoulders. There is no demonstrated abnormality of the visualized soft tissue structures of the upper abdomen. RAD/Chest PA and Lateral IMPRESSION: Normal x-ray examination of the chest. Electronically Signed: Yahir Gomez MD at 10:27 EDT , Service support ,
[2020-05-02 11:09] LABS: AST(SGOT) 14 U/L (15-37); Alanine Aminotransfer ALT/SGPT 21 U/L (16-61); Albumin, Serum 3.8 g/dL (3.2-5.0); Alkaline Phosphatase 62 U/L (45-117); Anion Gap 3 (5-15); BUN 14 mg/dL (7-18); BUN/Creat Ratio 16.7 RATIO (10-20); Calcium,Total 8.8 mg/dL (8.5-10.1); Chloride 104 mmol/L (98-107); Cholesterol 113 mg/dL (200); Creatinine, Serum 0.84 mg/dL (0.70-1.30); EST Glomerular Filtration Rate 100 mL/min (>60); Est Glom Filt Rate - Afr Amer 121 mL/min (>60); Glucose 177 mg/dL (74-106); High Density Lipoprotein 39 mg/dL; Potassium 4.5 mmol/L (3.5-5.1); Protein, Total 7.8 g/dL (6.4-8.2); Sodium Level 138 mmol/L (136-145); Triglycerides 150 mg/dL; Very Low Density Lipoprotein 30 mg/dL (5-40)
--- NOTE | 2020-05-03 07:52 | PCM.HP.BLA ---
<Eduardo Paz - Last Filed: 05/06/20 09:43> History and Physical Date of Admission: 05/07/20 HPI HPI History of Present Illness Details: AMNA HINSON, is a 59 year old white male who presents to the [facility] today for a cardioversion. He has a history of paroxysmal atrial fibrillation, syncope, mitral valve regurgitation, hypertension, hyperlipidemia, and diabetes. At his OV appointment on 03/06/2020, he was noted to be in Afib. He as again seen in office on 04/10/2020 and wished to proceed with outpatient cardioversion. Patient is not aware of his atrial fibrillation. He does not have any chest pain. He does not have any worsening shortness of breath. He does not have any lightheadedness dizziness. He does not have any lower extremity edema. Intake Vital Signs 04/10/20 Height 5 ft 7 in 04/10/20 Weight: 180 lb 04/10/20 BMI 28.1 04/10/20 Blood Pressure Location Rt brachial 04/10/20 Position Sitting 04/10/20 Respiration 12 04/10/20 Pulse 80 04/10/20 Pulse Source Monitor 04/10/20 Pulse Oximetry (%) 97 Intake Visit Reasons: [facility] Systems Software Engineer Required: No Accompanied by: Self Is patient in pain?: No Allergies No Known Allergies Allergy (Verified 04/10/20 13:03) Medications See EMR COUNTS INCLUDE 234 BEDS AT THE [facility] Medical History Type 2 diabetes mellitus (Chronic) Pure hypercholesterolemia (Chronic) Essential hypertension (Chronic) Paroxysmal atrial fibrillation (Chronic) 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 Other Family history of hypertension Social History (Updated 04/10/20 @ 13:49 by DEB Hale) Smoking Status: Never smoker alcohol intake: never substance use type: does not use caffeine: No what type of physical activity do you participate in: swimming frequency: 1-2 times per week seatbelt use: always do you feel safe at home: Yes ROS Const Const: Negative for fatigue, weakness, fever(s) or headache(s) Eyes Eyes: Negative for blind spots, loss of peripheral vision or transient loss of vision ENT ENT: Negative for headache(s), dizziness, tinnitus or Nosebleed/epistaxis Cardio Chest Pain: No Palpitations: No Edema: None Muscle aches with walking: None Resp Respiratory: Negative for SOB with activity, SOB at rest, SOB orthopnea\SOB lying down or Cough GI GI: Negative nausea, vomiting, heartburn or vomiting blood/hematemesis : Negative for hematuria Musc Musc: Negative for muscle aches/ myalgia Neuro Neuro: Negative for dizziness, lightheadedness, near syncope, syncope, orthostatic symptoms, headache(s) or weakness Gregory Hematologic/Lymphatic: Negative for easy bleeding Endo Endo: Negative for fatigue Cardiology Exam Const Appearance: cooperative, healthy appearing, comfortable, no acute distress, well developed and well groomed Nutritional Appearance: average body habitus Orientation: alert, awake and oriented x3 Head Head: normal to inspection, normocephalic and atraumatic Ears: hearing grossly normal bilaterally Nose: external nose normal Eyes Eyelids: eyelids normal Conjunctivae: conjunctivae normal Pupils: PERRL EOM: EOM intact bilaterally Neck Neck: normal visual inspection, full ROM and no JVD Carotids: normal carotid upstroke Chest Chest inspection: normal inspection of the chest and normal respiratory effort Auscultation: Bilateral: Clear to Auscultation Cardio Rhythm: irregular rhythm Heart sounds: S1 normal and S2 normal; negative rub or gallop GI GI: normal to inspection, soft and bowel sounds present Neuro General: alert, awake, oriented x3 and moves all extremities Skin Skin: no rashes or lesions noted Extremities Pulses: Normal: Right Posterior Tibial Pulse, Left Posterior Tibial Pulse, Right Radial Pulse, Left Radial Pulse Lower Extremity Edema: None: Bilateral Psych Psychological: normal affect Assessment & Plan 1. Persistent atrial fibrillation I48.19 Plan Patient's atrial fibrillation does appear to be persistent. He is not aware of this. He would like to pursue a cardioversion. He will continue with his sotalol for rhythm control and his factor Xa inhibitor for CVA protection. He will proceed with DCCV with appropriate follow-up. 2. Essential hypertension I10 Plan Blood pressure is well controlled on current medications, we do not recommend any changes at this time. 3. Pure hypercholesterolemia E78.00 Plan Patient will continue with current high intensity statin. Supplemental Info Supplemental Information Echocardiogram in 03/2020: Left ventricular systolic function is normal. The estimated ejection fraction is 55 %. Mild diffuse mitral valve thickening. Moderate (2+) mitral valve insufficiency. Mild tricuspid valve insufficiency. Right ventricular systolic pressure estimated to be 31 mmHg. Unable to assess diastolic dysfunction. Procedure Criteria Procedure Type: Elective COVID Risk Discussion: The surgeon/proceduralist and patient have discussed in detail the risk of exposure to and/or potential harm posed by the COVID-19 virus with having a surgery/procedure at this time versus the risk of delaying the surgery/procedure. It is not possible to know either the risk of delaying the surgery or procedure or chance of getting an infection with perfect accuracy, but a joint decision was made between the patient and the surgeon/proceduralist to proceed at this time with the scheduled surgery/procedure as indicated on the consent form. <Jayy Ga - Last Filed: 05/07/20 07:46> History and Physical Addendum: Date: 05-07-2020 I have re-examined the patient. There are no clinical changes since date of exam.
[2020-05-06 13:12] VITALS: BMI 38.9
--- NOTE | 2020-05-07 12:31 | CARDIOVERS ---
Cardioversion Cardioversion: Date: 05-07-2020 Procedure: Synchronized Biphasic DC Cardioversion Indications: Atrial fibrillation Consent: Per the Patient Anesthesia: per Dr. Rodriguez of pulmonology and critical care medicine with propofol 60 mg IV push x1 Procedure: Synchronized Biphasic DC Cardioversion: 200 J x1: Result: Sinus rhythm Complications: no apparent complications This note was generated with VoodooVoxation software. It may contain incorrect words, spelling, and punctuation that were not noted in checking the note before signing.
--- NOTE | 2020-05-07 13:44 | PRO.PCM_ITS ---
Procedure Report Date of Procedure: 05/07/20 CONSCIOUS SEDATION REPORT DATE OF SERVICE: May 07, 2020 BRIEF HISTORY OF PRESENT ILLNESS: The patient is a 59-year-old male who presented to [facility] for an elective outpatient cardioversion due to underlying atrial fibrillation. The patient is currently anticoagulated on Eliquis. His last surface echocardiogram revealed an ejection fraction of approximately 55%. He denies any previous anesthetic complications. The patient is a lifelong non-smoker. He was never diagnosed previously with obstructive sleep apnea. PHYSICAL EXAMINATION: VITAL SIGNS: Reviewed and were acceptable. GENERAL: The patient is a male, in no apparent distress, speaking in full sentences. HEENT: Normocephalic, atraumatic. Mucous membranes are moist and pink. Good mouth opening noted. Trachea is midline. CHEST: S1, S2 irregularly irregular. No murmurs, rubs or gallops were noted. LUNGS: Clear to auscultation bilaterally without appreciable wheezes, rales or rhonchi. ABDOMEN: Soft, nontender, nondistended. Positive bowel sounds. EXTREMITIES: There is no clubbing, cyanosis or edema. ASA Class: II DESCRIPTION OF PROCEDURE: After confirmation of informed consent, the patient's anesthesia plan was reviewed in detail. Propofol was chosen. Risks and benefits were reviewed and the patient agreed to proceed. At 1314, the patient was given 60 mg of propofol. The patient achieved an appropriate level of sedation and was given a 200 joule synchronized cardioversion by Dr. Ga at the bedside. This was successful in achieving normal sinus rhythm. The patient was monitored until 1325, at which time he reached his baseline mental status and function. The pat ient tolerated the procedure well. COMPLICATIONS: None ESTIMATED BLOOD LOSS: None RECOMMENDATIONS: Okay to recover in usual fashion. 9xxxx: Other Procedure See Report - [id number]
== END 2020-05-07 14:20 | disposition home or self-care (01) ==
LOC: CLSP 11:35
PROVIDERS: PCP Family Medicine Geriatric Medicine; Referring Provider Internal Medicine Cardiovascular Disease; Visit Provider Internal Medicine Cardiovascular Disease
DX: I48.19 Other persistent atrial fibrillation (principal); I10 Essential (primary) hypertension; E78.00 Pure hypercholesterolemia, unspecified; I34.0 Nonrheumatic mitral (valve) insufficiency; E11.9 Type 2 diabetes mellitus without complications; E78.5 Hyperlipidemia, unspecified; Z79.01 Long term (current) use of anticoagulants; Z82.49 Family history of ischemic heart disease and other diseases of the circulatory system
CPT/HCPCS: 36415; 71046; 80048; 80061; 80076; 92960; 93005; J7040

== ENCOUNTER → 2020-05-08 16:28 | Outpatient (CLI) | payer MEDICARE, MEDICAID, SELFPAY ==
[2020-05-06 13:12] VITALS: BMI 38.9
[2020-05-08 16:59] LABS: Absolute Lymphocyte Count 2.01 X10^3/uL (0.83-4.51); Absolute Neutrophil Count 5.8 X10^3/uL (2.0-7.7); Basophil# 0.05 X10^3/uL; Basophil% 0.6 % (0-1); Eosinophils% 3.4 % (0-5); Hematocrit 41.1 % (40-54); Hemoglobin 13.3 g/dL (13.0-16.5); Lymphocyte # 2.01 X10^3/ul (4.0); Lymphocyte % 22.5 % (19-41); Mean Corp Hgb Conc 32.4 g/dL (32-36); Mean Corpuscular Hgb 30.8 pg (27.0-32.0); Mean Corpuscular Volume 95.1 fL (80-94); Mean Platelet Vol. 9.2 fl (6.2-12.0); Monocyte# 0.75 X10^3/uL; Monocyte% 8.4 % (0-10); NRBC Flagged by Analyzer 0 % (0-5); Neutrophil # 5.77 X10^3/uL (2.7-7.7); Neutrophil % 64.5 % (47-70); Platelet Count 322 K/mm3 (150-450); RBC Distribution Width CV 13.3 % (11.6-14.6); RBC Distribution Width SD 45.8 fl (35.1-43.9); Red Blood Count 4.32 M/mm3 (4.6-6.2); White Blood Count 8.9 K/mm3 (4.4-11.0)
[2020-05-08 18:01] LABS: Vitamin D,25 Hydroxy 51.1 ng/mL
[2020-05-08 18:11] LABS: ALB/GLOB Ratio 0.9 RATIO (0.9-2.4); AST(SGOT) 16 U/L (15-37); Alanine Aminotransfer ALT/SGPT 20 U/L (16-61); Albumin, Serum 3.6 g/dL (3.2-5.0); Alkaline Phosphatase 59 U/L (45-117); Anion Gap 3 (5-15); BUN 13 mg/dL (7-18); BUN/Creat Ratio 15.3 RATIO (10-20); Calcium,Total 8.9 mg/dL (8.5-10.1); Chloride 107 mmol/L (98-107); Cholesterol 94 mg/dL (200); Creatinine, Serum 0.85 mg/dL (0.70-1.30); EST Glomerular Filtration Rate 98 mL/min (>60); Est Glom Filt Rate - Afr Amer 119 mL/min (>60); Globulin 4.1 g/dL (2.2-4.2); Glucose 107 mg/dL (74-106); High Density Lipoprotein 35 mg/dL; Potassium 4.2 mmol/L (3.5-5.1); Protein, Total 7.7 g/dL (6.4-8.2); Sodium Level 140 mmol/L (136-145); Thyroid Stim Hormone (TSH) 1.61 uIU/mL (0.358-3.74); Triglycerides 108 mg/dL; Very Low Density Lipoprotein 22 mg/dL (5-40)
== END ==
PROVIDERS: PCP Family Medicine Geriatric Medicine; Visit Provider Family Medicine Geriatric Medicine
DX: E55.9 Vitamin D deficiency, unspecified (principal); E78.5 Hyperlipidemia, unspecified; E11.9 Type 2 diabetes mellitus without complications; I10 Essential (primary) hypertension
CPT/HCPCS: 36415; 80053; 80061; 82306; 84443; 85025

== ENCOUNTER → 2020-08-06 14:01 | Outpatient (CLI) | payer MEDICARE, MEDICAID, SELFPAY ==
[2020-07-19 13:45] VITALS: BMI 37.6
[2020-08-06 16:22] LABS: Absolute Lymphocyte Count 2.01 X10^3/uL (0.83-4.51); Absolute Neutrophil Count 5.6 X10^3/uL (2.0-7.7); Basophil# 0.04 X10^3/uL; Basophil% 0.5 % (0-1); Eosinophil# 0.33 X10^3/uL; Eosinophils% 3.8 % (0-5); Hematocrit 39.8 % (40-54); Hemoglobin 12.8 g/dL (13.0-16.5); Lymphocyte # 2.01 X10^3/ul (4.0); Lymphocyte % 23.2 % (19-41); Mean Corp Hgb Conc 32.2 g/dL (32-36); Mean Corpuscular Hgb 30.7 pg (27.0-32.0); Mean Corpuscular Volume 95.4 fL (80-94); Mean Platelet Vol. 9.7 fl (6.2-12.0); Monocyte# 0.64 X10^3/uL; Monocyte% 7.4 % (0-10); NRBC Flagged by Analyzer 0 % (0-5); Neutrophil % 64.6 % (47-70); Platelet Count 285 K/mm3 (150-450); RBC Distribution Width CV 13.2 % (11.6-14.6); RBC Distribution Width SD 46.1 fl (35.1-43.9); Red Blood Count 4.17 M/mm3 (4.6-6.2); White Blood Count 8.7 K/mm3 (4.4-11.0)
[2020-08-06 16:48] LABS: ALB/GLOB Ratio 0.9 RATIO (0.9-2.4); AST(SGOT) 20 U/L (15-37); Alanine Aminotransfer ALT/SGPT 24 U/L (16-61); Albumin, Serum 3.6 g/dL (3.2-5.0); Alkaline Phosphatase 66 U/L (45-117); Anion Gap 3 (5-15); BUN 10 mg/dL (7-18); BUN/Creat Ratio 11.9 RATIO (10-20); Calcium,Total 8.6 mg/dL (8.5-10.1); Chloride 104 mmol/L (98-107); Cholesterol 87 mg/dL (200); Creatinine, Serum 0.84 mg/dL (0.70-1.30); EST Glomerular Filtration Rate 99 mL/min (>60); Est Glom Filt Rate - Afr Amer 120 mL/min (>60); Glucose 108 mg/dL (74-106); High Density Lipoprotein 42 mg/dL; Potassium 4.2 mmol/L (3.5-5.1); Protein, Total 7.6 g/dL (6.4-8.2); Sodium Level 139 mmol/L (136-145); Thyroid Stim Hormone (TSH) 1.46 uIU/mL (0.358-3.74); Triglycerides 69 mg/dL; Very Low Density Lipoprotein 14 mg/dL (5-40)
== END ==
PROVIDERS: PCP Family Medicine Geriatric Medicine; Visit Provider Family Medicine Geriatric Medicine
DX: E11.9 Type 2 diabetes mellitus without complications (principal); E78.5 Hyperlipidemia, unspecified; I10 Essential (primary) hypertension
CPT/HCPCS: 36415; 80053; 80061; 84443; 85025

== ENCOUNTER → 2020-09-25 17:31 | Outpatient (CLI) | payer MEDICARE, MEDICAID, SELFPAY ==
[2020-07-19 13:45] VITALS: BMI 37.6
== END ==
PROVIDERS: PCP Family Medicine Geriatric Medicine; Referring Provider Family Medicine Geriatric Medicine; Visit Provider Family Medicine Geriatric Medicine
DX: U07.1 COVID-19 (principal)
CPT/HCPCS: 87633; 87635; C9803; U0003

== ENCOUNTER → 2020-10-02 17:14 | Outpatient (CLI) | payer MEDICARE, MEDICAID, SELFPAY ==
[2020-07-19 13:45] VITALS: BMI 37.6
== END ==
PROVIDERS: PCP Family Medicine Geriatric Medicine; Referring Provider Family Medicine Geriatric Medicine; Visit Provider Family Medicine Geriatric Medicine
DX: R06.89 Other abnormalities of breathing (principal)
CPT/HCPCS: 87633; 87635; C9803; U0003

== ENCOUNTER → 2020-11-04 13:59 | Outpatient (CLI) | payer MEDICARE, MEDICAID, SELFPAY ==
[2020-07-19 13:45] VITALS: BMI 37.6
[2020-11-04 16:48] LABS: Absolute Lymphocyte Count 2.38 X10^3/uL (0.83-4.51); Absolute Neutrophil Count 5.9 X10^3/uL (2.0-7.7); Basophil# 0.06 X10^3/uL; Basophil% 0.6 % (0-1); Eosinophils% 4.2 % (0-5); Hematocrit 42.3 % (40-54); Hemoglobin 13.7 g/dL (13.0-16.5); Lymphocyte # 2.38 X10^3/ul (4.0); Mean Corp Hgb Conc 32.4 g/dL (32-36); Mean Corpuscular Hgb 30.7 pg (27.0-32.0); Mean Corpuscular Volume 94.8 fL (80-94); Mean Platelet Vol. 9.7 fl (6.2-12.0); Monocyte# 0.77 X10^3/uL; Monocyte% 8.1 % (0-10); NRBC Flagged by Analyzer 0 % (0-5); Neutrophil # 5.88 X10^3/uL (2.7-7.7); Neutrophil % 61.7 % (47-70); Platelet Count 362 K/mm3 (150-450); RBC Distribution Width CV 13.8 % (11.6-14.6); RBC Distribution Width SD 47.9 fl (35.1-43.9); Red Blood Count 4.46 M/mm3 (4.6-6.2); White Blood Count 9.5 K/mm3 (4.4-11.0)
[2020-11-04 17:00] LABS: ALB/GLOB Ratio 0.9 RATIO (0.9-2.4); AST(SGOT) 21 U/L (15-37); Alanine Aminotransfer ALT/SGPT 24 U/L (16-61); Albumin, Serum 3.7 g/dL (3.2-5.0); Alkaline Phosphatase 68 U/L (45-117); Anion Gap 7 (5-15); BUN 16 mg/dL (7-18); BUN/Creat Ratio 18.8 RATIO (10-20); Calcium,Total 8.9 mg/dL (8.5-10.1); Chloride 103 mmol/L (98-107); Cholesterol 113 mg/dL (200); Creatinine, Serum 0.85 mg/dL (0.70-1.30); EST Glomerular Filtration Rate 98 mL/min (>60); Est Glom Filt Rate - Afr Amer 119 mL/min (>60); Globulin 4.2 g/dL (2.2-4.2); Glucose 92 mg/dL (74-106); High Density Lipoprotein 38 mg/dL; Potassium 4.3 mmol/L (3.5-5.1); Protein, Total 7.9 g/dL (6.4-8.2); Sodium Level 138 mmol/L (136-145); Thyroid Stim Hormone (TSH) 1.98 uIU/mL (0.358-3.74); Triglycerides 168 mg/dL; Very Low Density Lipoprotein 34 mg/dL (5-40)
== END ==
PROVIDERS: PCP Family Medicine Geriatric Medicine; Visit Provider Family Medicine Geriatric Medicine
DX: E78.5 Hyperlipidemia, unspecified (principal); I10 Essential (primary) hypertension; E11.9 Type 2 diabetes mellitus without complications
CPT/HCPCS: 36415; 80053; 80061; 84443; 85025

== ENCOUNTER → 2021-02-10 13:56 | Outpatient (CLI) | payer MEDICARE, MEDICAID, SELFPAY ==
[2020-07-19 13:45] VITALS: BMI 37.6
[2021-02-10 14:40] LABS: Absolute Lymphocyte Count 1.71 X10^3/uL (0.83-4.51); Absolute Neutrophil Count 4.5 X10^3/uL (2.0-7.7); Basophil# 0.04 X10^3/uL; Basophil% 0.5 % (0-1); Eosinophil# 0.31 X10^3/uL; Eosinophils% 4.2 % (0-5); Hematocrit 33.6 % (40-54); Hemoglobin 10.4 g/dL (13.0-16.5); Lymphocyte # 1.71 X10^3/ul (0.83-4.51); Lymphocyte % 23.2 % (19-41); Mean Corpuscular Hgb 29.1 pg (27.0-32.0); Mean Corpuscular Volume 94.1 fL (80-94); Mean Platelet Vol. 9.5 fl (6.2-12.0); Monocyte# 0.73 X10^3/uL; Monocyte% 9.9 % (0-10); NRBC Flagged by Analyzer 0 % (0-5); Neutrophil # 4.53 X10^3/uL (2.7-7.7); Neutrophil % 61.7 % (47-70); Platelet Count 343 K/mm3 (150-450); RBC Distribution Width CV 13.2 % (11.6-14.6); RBC Distribution Width SD 45.1 fl (35.1-43.9); Red Blood Count 3.57 M/mm3 (4.6-6.2); White Blood Count 7.4 K/mm3 (4.4-11.0)
[2021-02-10 15:35] LABS: ALB/GLOB Ratio 0.9 RATIO (0.9-2.4); AST(SGOT) 17 U/L (15-37); Alanine Aminotransfer ALT/SGPT 21 U/L (16-61); Albumin, Serum 3.5 g/dL (3.2-5.0); Alkaline Phosphatase 64 U/L (45-117); Anion Gap 7 (5-15); BUN 15 mg/dL (7-18); BUN/Creat Ratio 17.1 RATIO (10-20); Calcium,Total 8.9 mg/dL (8.5-10.1); Chloride 104 mmol/L (98-107); Cholesterol 98 mg/dL (200); Creatinine, Serum 0.88 mg/dL (0.70-1.30); EST Glomerular Filtration Rate 95 mL/min (>60); Est Glom Filt Rate - Afr Amer 115 mL/min (>60); Globulin 4.1 g/dL (2.2-4.2); Glucose 137 mg/dL (74-106); High Density Lipoprotein 38 mg/dL; PSA,Total - Annual Screen 0.56 ng/mL (0.00-4.00); Potassium 4.1 mmol/L (3.5-5.1); Protein, Total 7.6 g/dL (6.4-8.2); Sodium Level 141 mmol/L (136-145); Thyroid Stim Hormone (TSH) 1.51 uIU/mL (0.358-3.74); Triglycerides 136 mg/dL; Very Low Density Lipoprotein 27 mg/dL (5-40)
== END ==
PROVIDERS: PCP Family Medicine Geriatric Medicine; Visit Provider Family Medicine Geriatric Medicine
DX: E11.9 Type 2 diabetes mellitus without complications (principal); E78.5 Hyperlipidemia, unspecified; I10 Essential (primary) hypertension; Z12.5 Encounter for screening for malignant neoplasm of prostate
CPT/HCPCS: 36415; 80053; 80061; 84153; 84443; 85025; G0103

== ENCOUNTER → 2021-02-14 10:48 | Outpatient (CLI) | payer MEDICARE, MEDICAID, SELFPAY ==
[2020-07-19 13:45] VITALS: BMI 37.6
[2021-02-14 12:25] LABS: Absolute Lymphocyte Count 1.39 X10^3/uL (0.83-4.51); Absolute Neutrophil Count 5.5 X10^3/uL (2.0-7.7); Basophil# 0.04 X10^3/uL; Basophil% 0.5 % (0-1); Eosinophil# 0.32 X10^3/uL; Eosinophils% 4.1 % (0-5); Hematocrit 33.3 % (40-54); Hemoglobin 10.4 g/dL (13.0-16.5); Lymphocyte # 1.39 X10^3/ul (0.83-4.51); Lymphocyte % 17.9 % (19-41); Mean Corp Hgb Conc 31.2 g/dL (32-36); Mean Corpuscular Hgb 29.3 pg (27.0-32.0); Mean Corpuscular Volume 93.8 fL (80-94); Mean Platelet Vol. 9.7 fl (6.2-12.0); Monocyte# 0.49 X10^3/uL; Monocyte% 6.3 % (0-10); NRBC Flagged by Analyzer 0 % (0-5); Neutrophil # 5.48 X10^3/uL (2.7-7.7); Neutrophil % 70.7 % (47-70); Platelet Count 346 K/mm3 (150-450); RBC Distribution Width CV 13.1 % (11.6-14.6); RET-HE 31.8 pg (30-35); Red Blood Count 3.55 M/mm3 (4.6-6.2); Reticulocyte Count 2.08 % (0.5-1.5); White Blood Count 7.8 K/mm3 (4.4-11.0)
[2021-02-14 12:41] LABS: Vitamin B12 289 pg/mL (211-911)
[2021-02-14 13:16] LABS: Ferritin 6 ng/mL (26-388); Iron 32 ug/dL (65-175); Iron Binding Capacity,Total 428 ug/dL (250-450); PERCENT IRON SATURATION 7.5 % (15.0-55.0)
== END ==
PROVIDERS: PCP Family Medicine Geriatric Medicine; Visit Provider Family Medicine Geriatric Medicine
DX: D50.9 Iron deficiency anemia, unspecified (principal)
CPT/HCPCS: 36415; 82607; 82728; 82746; 83540; 83550; 85025; 85045

== ENCOUNTER → 2021-02-18 15:34 | Outpatient (CLI) | payer MEDICARE, MEDICAID, SELFPAY ==
[2020-07-19 13:45] VITALS: BMI 37.6
== END ==
PROVIDERS: PCP Family Medicine Geriatric Medicine; Visit Provider Family Medicine Geriatric Medicine
DX: E72.11 Homocystinuria (principal); R79.9 Abnormal finding of blood chemistry, unspecified
CPT/HCPCS: 36415; 83090; 83921

== ENCOUNTER 2021-03-21 08:19 | Day surgery (SDC) | payer MEDICARE, MEDICAID, SELFPAY ==
[2021-02-26 09:21] VITALS: BMI 38.9
[2021-03-21] VITALS (7 sets, daily range): BP systolic 109–150; BP diastolic 76–99; PULSE 65–112; RESP 16; TEMP 36.4–36.8; O2SAT 96–100; BMI 28.8
[2021-03-21] MEDS: Lactated Ringers 1,000 ML 100 ML IV (08:59)
[2021-03-21 09:30] LABS: Bedside Glucose 162 mg/dL (70-110)
--- NOTE | 2021-03-21 09:56 | HP.PCM_ITS ---
History and Physical Date of Admission: 03/21/21 Intake Vital Signs 02/26/21 09:19 02/26/21 09:21 Height 5 ft 7.5 in Weight: 182 lb BMI 28.0 38.9 BP 153/84 H Blood Pressure Location Rt brachial Position Sitting Respiration 18 Pulse 97 Pulse Source NIBP Temp 97.8 F Temp Source Temporal Pulse Oximetry (%) 99 Oxygen Delivery Method room air Intake Visit Reasons: C-SCOPE Consult Chief Complaint: anemia/ GERD Environmental Remediation Specialist Required: No Is patient in pain?: No Allergies No Known Allergies Allergy (Verified 02/26/21 09:20) Medications aspirin 81 mg tablet,delayed release 81 mg PO QDAY tab 12/09/17 [History Confirmed 02/26/21] levothyroxine 25 mcg tablet 25 mcg PO QDAY tab 12/09/17 [History Confirmed 02/26/21] omeprazole 40 mg capsule,delayed release 40 mg PO QDAY 12/09/17 [History Confirmed 02/26/21] simvastatin 80 mg tablet 80 mg PO QDAY 12/09/17 [History Confirmed 02/26/21] saxagliptin 2.5 mg-metformin ER 1,000 mg tablet,extend release 24hr mp 1 tab PO QPM 03/03/19 [History Confirmed 02/26/21] sotalol 80 mg tablet 80 mg PO BID tab 03/06/20 [History Confirmed 02/26/21] apixaban 5 mg tablet 5 mg PO BID #180 tab 05/21/20 [Rx Confirmed 02/26/21] polysaccharide iron complex 150 mg iron capsule 150 mg PO DAILY 02/26/21 [History Confirmed 02/26/21] [facility] Medical History (Updated 02/26/21 @ 09:[address] Riaz Porter MD) Diabetes mellitus Essential hypertension Family history of hyperlipidemia Family history of hypertension History of cardioversion (~05/07/20) Hyperlipidemia prison use of drug Nonrheumatic mitral valve regurgitation Paroxysmal atrial fibrillation Pure hypercholesterolemia Syncope and collapse Type 2 diabetes mellitus Surgical History (Updated 02/26/21 @ 09:19 by Shyla Zaragoza) History of colonoscopy Family History Father Cancer lung Sister CAD (coronary artery disease) Family history of hyperlipidemia Hypertension COPD (chronic obstructive pulmonary disease) pacemaker Sister Diabetes Cancer Mother No problems noted. Other Family history of hypertension Social History (Updated 07/19/20 @ 14:26 by Joelle BOYD, PA) Smoking Status: Never smoker alcohol intake: never substance use type: does not use caffeine: No what type of physical activity do you participate in: swimming frequency: 1-2 times per week seatbelt use: always do you feel safe at home: Yes HPI HPI HPI: AMNA HINSON, is a 60 M who presents to the office today for iron deficiency anemia. The patient has not noticed any gross blood in his stool. He is not having any abdominal pain or nausea or vomiting. The patient says his last EGD and colonoscopy were a long time going over 10 years ago. Patient has no family history of colon cancer that he knows of. ROS General General: No weight change, appetite, fatigue, colon cancer, breast cancer or weakness HEENT HEENT: No difficulty swallowing, eye injury, eye surgery, swollen glands or hoarseness Endo Endocrine: Yes thyroid disease and diabetes mellitus; No thyroid cancer, Hair loss, heat intolerance or cold intolerance Musc Musculoskeletal: Yes arthritis; No back problems, rheumatoid arthritis, gout or joint pain Cardio Cardiovascular: Yes murmur, heart disease, atrial fibrillation and high blood pressure; No pacemaker, heart attack, heart stent, palpitations, shortness of breat with exertion or chest pain Psych Psychiatric: No depression, anxiety or hearing voices Resp Respiratory: No shortness of breath, No sleep apnea, No cough, No COPD, No asthma, No emphysema and No wheezing Gastro Gastrointestinal: No abdominal pain, No nausea or vomiting, No diarrhea, No constipation, Yes blood in stool, Yes acid reflux, No hemorrhoids, No ulcers, No gallbladder problem and No black,tarry stools Gregory Hematologic: Yes blood thinners, No blood disorders, No bleeding, Yes anemia and No blood clots Neuro Neurologic: No weakness Exam Const General: cooperative Orientation: alert and oriented x3 HENMT Head: normal to inspection Neck Neck: normal visual inspection and full ROM Chest Chest palpation & inspection: normal inspection of the chest Resp Effort & Inspection: normal respiratory effort Auscultation: clear to auscultation bilaterally Cardio Rate: regular rate Rhythm: regular rhythm GI Inspection: non-distended Palpation: soft and nontender Skin General: no rashes or lesions noted Neuro General: patient alert and patient oriented x3 Extrem General: full ROM Psych Appearance: grossly normal Mental Status: mental status grossly normal Assessment and Plan Assessment and Plan (1) Iron deficiency anemia: Status: Acute Orders: Orders: Colonoscopy Today EGD Today Plan - Dr. Riaz Porter MD: The patient was found to have iron deficiency anemia and requires upper and lower endoscopy. The patient is not having any abdominal pain or blood in his stool that he can notice. Patient's last colonoscopy were a long time ago. I have asked him to continue his aspirin and stop his Eliquis for 2 days prior to the procedure. I explained endoscopy in detail to the patient. I explained the risks including but not limited to stroke or heart attack with anesthesia, perforation of the GI tract, bleeding, infection. I explained that any of these could necessitate further emergency surgery. The patient understands and all questions were answered sufficiently. The patient wishes to proceed with procedure. Riaz Porter MD Pager: [facility] [address] [place] [address], [address] [place] [address] Office: I have re-examined the patient. There are no clinical changes since date of exam.
--- NOTE | 2021-03-21 10:42 | OP.EGD_ITS ---
Patient Name: Bryan Valdez Procedure Date: 03/21/2021 10:07 AM Date of : 1960 Age: 60 Procedure: Upper GI endoscopy Indications: Iron deficiency anemia Providers: Riaz Porter MD Medicines: Monitored Anesthesia Care Patient Profile: This is a 60 year old male. Refer to note in patient chart for documentation of history and physical. Complications: No immediate complications. Estimated blood loss: Minimal. Procedure: Pre-Anesthesia Assessment: - Prior to the procedure, a History and Physical was performed, and patient medications and allergies were reviewed. The patient's tolerance of previous anesthesia was also reviewed. The risks and benefits of the procedure and the sedation options and risks were discussed with the patient. All questions were answered, and informed consent was obtained. Prior Anticoagulants: The patient has taken Eliquis (apixaban), last dose was 2 days prior to procedure. After reviewing the risks and benefits, the patient was deemed in satisfactory condition to undergo the procedure. After obtaining informed consent, the endoscope was passed under direct vision. Throughout the procedure, the patient's blood pressure, pulse, and oxygen saturations were monitored continuously. The Endoscope was introduced through the mouth, and advanced to the second part of duodenum. The upper GI endoscopy was accomplished without difficulty. The patient tolerated the procedure well. Scope In: 10:15:19 AM Scope Out: 10:18:04 AM Total Procedure Duration Time 0 hours 2 minutes 45 seconds Findings: The esophagus was normal. The stomach was normal. Patchy moderately erythematous mucosa with active bleeding and with no stigmata of bleeding was found in the second portion of the duodenum. Impression: - Normal esophagus. - Normal stomach. - Erythematous duodenopathy. - No specimens collected. Recommendation: - Discharge patient to home. - Resume previous diet. - Continue present medications. Procedure Code(s): --- Professional --- 89690, Esophagogastroduodenoscopy, flexible, transoral; diagnostic, including collection of specimen(s) by brushing or washing, when performed (separate procedure) Diagnosis Code(s): --- Professional --- K31.89, Other diseases of stomach and duodenum D50.9, Iron deficiency anemia, unspecified CPT copyright 2017 [employer]. All rights reserved. The codes documented in this report are preliminary and upon glove pairer review may be revised to meet current compliance requirements. Riaz Porter MD 03/21/2021 10:42:19 AM This report has been signed electronically. Number of Addenda: 0 Note Initiated On: 03/21/2021 10:07 AM
--- NOTE | 2021-03-21 10:42 | OP.CCLET_ITS ---
03/21/2021 Chinedu Miranda MD [address] [place] [address] Re : Upper GI endoscopy procedure for Bryan Valdez Dear Dr. Miranda This procedure was performed on Sunday, March 21, 2021. My impressions and recommendations are as follows: Impressions : - Normal esophagus. - Normal stomach. - Erythematous duodenopathy. - No specimens collected. Recommendations : - Discharge patient to home. - Resume previous diet. - Continue present medications. My findings are described in the full procedure note, which is enclosed. If I can be of further assistance, please feel free to contact me at Doctor phone number(s): , Work: . Sincerely, Riaz Porter MD 03/21/2021 10:42:19 AM This report has been signed electronically.
--- NOTE | 2021-03-21 10:44 | OP.CCLET_ITS ---
03/21/2021 Chinedu Miranda MD [address] [place] [address] Re : Colonoscopy procedure for Bryan Valdez Dear Dr. Miranda This procedure was performed on Sunday, March 21, 2021. My impressions and recommendations are as follows: Impressions : - The entire examined colon is normal on direct and retroflexion views. - No specimens collected. Recommendations : - Discharge patient to home. - Resume previous diet. - Continue present medications. - Repeat colonoscopy in 10 years for screening purposes. - Resume Eliquis (apixaban) at prior dose tomorrow. My findings are described in the full procedure note, which is enclosed. If I can be of further assistance, please feel free to contact me at Doctor phone number(s): , Work: . Sincerely, Riaz Porter MD 03/21/2021 10:43:41 AM This report has been signed electronically.
--- NOTE | 2021-03-21 10:44 | OP.COLON_ITS ---
Patient Name: Bryan Valdez Procedure Date: 03/21/2021 10:18 AM Date of : 1960 Age: 60 Procedure: Colonoscopy Indications: Iron deficiency anemia Providers: Riaz Porter MD Medicines: Monitored Anesthesia Care Patient Profile: This is a 60 year old male. Refer to note in patient chart for documentation of history and physical. Last Colonoscopy: more than 10 years ago. Complications: No immediate complications. Procedure: Pre-Anesthesia Assessment: - Prior to the procedure, a History and Physical was performed, and patient medications and allergies were reviewed. The patient's tolerance of previous anesthesia was also reviewed. The risks and benefits of the procedure and the sedation options and risks were discussed with the patient. All questions were answered, and informed consent was obtained. Prior Anticoagulants: The patient has taken Eliquis (apixaban), last dose was 2 days prior to procedure. After reviewing the risks and benefits, the patient was deemed in satisfactory condition to undergo the procedure. After I obtained informed consent, the scope was passed under direct vision. Throughout the procedure, the patient's blood pressure, pulse, and oxygen saturations were monitored continuously. The colonoscope was introduced through the anus and advanced to the cecum, identified by appendiceal orifice and ileocecal valve. The colonoscopy was performed without difficulty. The patient tolerated the procedure well. The quality of the bowel preparation was good. Scope In: 10:20:22 AM Scope Withdrawal Time 0 hours 6 minutes 19 seconds Scope Out: 10:35:05 AM Total Procedure Duration Time 0 hours 14 minutes 43 seconds Findings: The entire examined colon appeared normal on direct and retroflexion views. Impression: - The entire examined colon is normal on direct and retroflexion views. - No specimens collected. Recommendation: - Discharge patient to home. - Resume previous diet. - Continue present medications. - Repeat colonoscopy in 10 years for screening purposes. - Resume Eliquis (apixaban) at prior dose tomorrow. Procedure Code(s): --- Professional --- 80952, Colonoscopy, flexible; diagnostic, including collection of specimen(s) by brushing or washing, when performed (separate procedure) Diagnosis Code(s): --- Professional --- D50.9, Iron deficiency anemia, unspecified CPT copyright 2017 [employer]. All rights reserved. The codes documented in this report are preliminary and upon steak sauce maker review may be revised to meet current compliance requirements. Riaz Porter MD 03/21/2021 10:43:41 AM This report has been signed electronically. Number of Addenda: 0 Note Initiated On: 03/21/2021 10:18 AM
== END 2021-03-21 11:29 ==
LOC: EN 08:22 → AC 08:23
PROVIDERS: PCP Family Medicine Geriatric Medicine; Referring Provider Family Medicine Geriatric Medicine; Visit Provider Surgery
PROC: 0DJD8ZZ Inspection of Lower Intestinal Tract, Via Natural or Artificial Opening Endoscopic (ICD-10-PCS; CPT 45378; principal; 2021-03-21 09:25)
DX: D50.9 Iron deficiency anemia, unspecified (principal); K31.89 Other diseases of stomach and duodenum; E11.9 Type 2 diabetes mellitus without complications; I10 Essential (primary) hypertension; E78.5 Hyperlipidemia, unspecified; I48.0 Paroxysmal atrial fibrillation; Z79.01 Long term (current) use of anticoagulants; Z79.82 Long term (current) use of aspirin; Z79.84 Long term (current) use of oral hypoglycemic drugs; K21.9 Gastro-esophageal reflux disease without esophagitis
CPT/HCPCS: 43235; 45378; 82962; J7120; J2405

== ENCOUNTER → 2021-03-27 10:26 | Outpatient (CLI) | payer MEDICARE, MEDICAID, SELFPAY ==
[2021-03-21 09:00] VITALS: BMI 28.8
[2021-03-27 11:57] LABS: Absolute Lymphocyte Count 1.19 X10^3/uL (0.83-4.51); Absolute Neutrophil Count 4.6 X10^3/uL (2.0-7.7); Basophil# 0.05 X10^3/uL; Basophil% 0.8 % (0-1); Eosinophil# 0.24 X10^3/uL; Eosinophils% 3.7 % (0-5); Hematocrit 33.9 % (40-54); Hemoglobin 10.4 g/dL (13.0-16.5); Lymphocyte # 1.19 X10^3/ul (0.83-4.51); Lymphocyte % 18.1 % (19-41); Mean Corp Hgb Conc 30.7 g/dL (32-36); Mean Corpuscular Volume 91.1 fL (80-94); Mean Platelet Vol. 9.9 fl (6.2-12.0); Monocyte# 0.41 X10^3/uL; Monocyte% 6.3 % (0-10); NRBC Flagged by Analyzer 0 % (0-5); Neutrophil # 4.61 X10^3/uL (2.7-7.7); Neutrophil % 70.2 % (47-70); Platelet Count 291 K/mm3 (150-450); RBC Distribution Width CV 13.7 % (11.6-14.6); RBC Distribution Width SD 45.7 fl (35.1-43.9); Red Blood Count 3.72 M/mm3 (4.6-6.2); White Blood Count 6.6 K/mm3 (4.4-11.0)
== END ==
PROVIDERS: PCP Family Medicine Geriatric Medicine; Visit Provider Family Medicine Geriatric Medicine
DX: D64.9 Anemia, unspecified (principal)
CPT/HCPCS: 36415; 85025

== ENCOUNTER → 2021-05-07 12:10 | Outpatient (CLI) | payer MEDICARE, MEDICAID, SELFPAY ==
[2021-05-05 13:28] VITALS: BMI 34.6
== END ==
PROVIDERS: PCP Family Medicine Geriatric Medicine; Referring Provider Internal Medicine Cardiovascular Disease; Visit Provider Internal Medicine Cardiovascular Disease
DX: I48.0 Paroxysmal atrial fibrillation (principal)
CPT/HCPCS: 93225; 93226

== ENCOUNTER → 2021-05-14 13:32 | Outpatient (CLI) | payer MEDICARE, SELFPAY ==
[2021-05-05 13:28] VITALS: BMI 34.6
[2021-05-14 14:35] LABS: Absolute Lymphocyte Count 1.48 X10^3/uL (0.83-4.51); Absolute Neutrophil Count 6.3 X10^3/uL (2.0-7.7); Basophil# 0.05 X10^3/uL; Basophil% 0.5 % (0-1); Eosinophil# 0.44 X10^3/uL; Eosinophils% 4.8 % (0-5); Hematocrit 37.6 % (40-54); Hemoglobin 11.4 g/dL (13.0-16.5); Lymphocyte # 1.48 X10^3/ul (0.83-4.51); Lymphocyte % 16.3 % (19-41); Mean Corp Hgb Conc 30.3 g/dL (32-36); Mean Corpuscular Hgb 26.5 pg (27.0-32.0); Mean Corpuscular Volume 87.4 fL (80-94); Mean Platelet Vol. 9.8 fl (6.2-12.0); Monocyte# 0.75 X10^3/uL; Monocyte% 8.2 % (0-10); NRBC Flagged by Analyzer 0 % (0-5); Neutrophil # 6.34 X10^3/uL (2.7-7.7); Neutrophil % 69.8 % (47-70); Platelet Count 348 K/mm3 (150-450); RBC Distribution Width SD 49.1 fl (35.1-43.9); White Blood Count 9.1 K/mm3 (4.4-11.0)
[2021-05-14 14:50] LABS: Vitamin D,25 Hydroxy 44.8 ng/mL
[2021-05-14 14:55] LABS: ALB/GLOB Ratio 0.7 RATIO (0.9-2.4); AST(SGOT) 17 U/L (15-37); Alanine Aminotransfer ALT/SGPT 19 U/L (16-61); Albumin, Serum 3.5 g/dL (3.2-5.0); Alkaline Phosphatase 75 U/L (45-117); Anion Gap 7 (5-15); BUN 10 mg/dL (7-18); Calcium,Total 8.7 mg/dL (8.5-10.1); Chloride 100 mmol/L (98-107); Creatinine, Serum 0.91 mg/dL (0.70-1.30); EST Glomerular Filtration Rate 90 mL/min (>60); Est Glom Filt Rate - Afr Amer 109 mL/min (>60); Globulin 4.7 g/dL (2.2-4.2); Glucose 230 mg/dL (74-106); Potassium 3.9 mmol/L (3.5-5.1); Protein, Total 8.2 g/dL (6.4-8.2); Sodium Level 135 mmol/L (136-145); Thyroid Stim Hormone (TSH) 0.97 uIU/mL (0.358-3.74)
== END ==
PROVIDERS: PCP Family Medicine Geriatric Medicine; Visit Provider Family Medicine Geriatric Medicine
DX: E55.9 Vitamin D deficiency, unspecified (principal); E11.9 Type 2 diabetes mellitus without complications; I10 Essential (primary) hypertension
CPT/HCPCS: 36415; 80053; 82306; 84443; 85025

== ENCOUNTER 2021-05-20 10:24 | Day surgery (SDC) | payer MEDICARE, MEDICAID, SELFPAY ==
[2021-05-05 13:28] VITALS: BMI 34.6
[2021-05-19 07:05] VITALS: BMI 34.5
--- NOTE | 2021-05-19 16:45 | PCM.HP.BLA ---
History and Physical Date of Admission: 05/20/21 [facility] [address] [facility] [place] [address] [phone] OFFICE VISITDate of Service: 05/05/21 MR#:[id number]: AMNA HINSON ARep #:[id number] Provider:Dr. Jayy Ga, DULCEge/Sex: 60/M [facility] History of Present Illness Details: This is a 60-year-old white male who presents today for outpatient cardiovascular follow-up of his history of atrial fibrillation superimposed upon a history of MR, hyperlipidemia, and hypertension. Overall from a cardiac standpoint he states he feels well. He does not describe any palpitations or rapid rates. There is been no near syncope or syncope. He has had no concerning chest discomfort or difficulty breathing. On examination he was noted to have an irregular rate and rhythm. An ECG was performed. He was noted to be in atrial fibrillation with a ventricular rate approximately 90 bpm and no acute ECG changes. 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 Accompanied by: Self Allergies No Known Allergies Allergy (Verified 05/05/21 13:31) Medications aspirin 81 mg tablet,delayed release 81 mg PO QDAY tab 12/09/17 [History Confirmed 05/05/21] levothyroxine 25 mcg tablet 25 mcg PO QDAY tab 12/09/17 [History Confirmed 05/05/21] omeprazole 40 mg capsule,delayed release 40 mg PO QDAY 12/09/17 [History Confirmed 05/05/21] simvastatin 80 mg tablet 80 mg PO QDAY 12/09/17 [History Confirmed 05/05/21] saxagliptin 2.5 mg-metformin ER 1,000 mg tablet,extend release 24hr mp 1 tab PO QPM 03/03/19 [History Confirmed 05/05/21] sotalol 80 mg tablet 80 mg PO BID tab 03/06/20 [History Confirmed 05/05/21] apixaban 5 mg tablet 5 mg PO BID #180 tab 05/21/20 [Rx Confirmed 05/05/21] polysaccharide iron complex 150 mg iron capsule 150 mg PO DAILY 02/26/21 [History Confirmed 05/05/21] insulin glargine-lixisenatide [Soliqua /33] 35 unit SUBCUT [facility] 03/19/21 [History Confirmed 05/05/21] [facility] Medical History Cardiology follow-up encounter Diabetes Diabetes mellitus Essential hypertension Family history of hyperlipidemia Family history of hypertension Gastric reflux High cholesterol History of cardioversion (~05/07/20) Hyperlipidemia Insulin dependent diabetes mellitus emt intermediate use of drug Nonrheumatic mitral valve regurgitation Paroxysmal atrial fibrillation Pure hypercholesterolemia Syncope and collapse Thyroid disease Type 2 diabetes mellitus Wears dentures Wears glasses Surgical History History of colonoscopy Family History Father Cancer lung Sister CAD (coronary artery disease) Family history of hyperlipidemia Hypertension COPD (chronic obstructive pulmonary disease) pacemaker Sister Diabetes Cancer Mother No problems noted. Other Family history of hypertension Social History Smoking Status: Never smoker alcohol intake: never substance use type: does not use caffeine: No what type of physical activity do you participate in: swimming frequency: 1-2 times per week seatbelt use: always do you feel safe at home: Yes ROS Const Const: Negative for fatigue, weakness, frequent falls, excessive sweating, weight gain or weight loss Eyes Eyes: Negative for transient loss of vision, blurry vision or change in vision ENT ENT: Negative for dizziness or balance problems Cardio Chest Pain: No Palpitations: No Edema: None Muscle aches with walking: None Resp Respiratory: Negative for SOB with activity or SOB at rest GI GI: Negative vomiting or vomiting blood/hematemesis : Negative for hematuria Musc Musc: Negative for muscle aches/ myalgia, muscle weakness, joint pain or balance problems Skin Skin: Negative non-healing lesions or rash Neuro Neuro: Negative for dizziness, lightheadedness, orthostatic symptoms, frequent falls, weakness or blurry vision Gregory Hematologic/Lymphatic: Negative for easy bleeding Endo Endo: Negative for fatigue or excessive sweating Psych Psych: Negative for anxiety or depression Allergy Allergy/Immunology: Negative for hives and Negative for rash Cardiology Exam Const Appearance: cooperative, healthy appearing, comfortable, no acute distress, well developed and well groomed Nutritional Appearance: overweight Orientation: alert, awake and oriented x3 Head Head: normal to inspection, normocephalic and atraumatic Ears: hearing grossly normal bilaterally Nose: external nose normal Face and Sinus: face symmetric Eyes Eyelids: eyelids normal Pupils: PERRL EOM: EOM intact bilaterally Neck Neck: normal visual inspection and full ROM Carotids: normal carotid upstroke Chest Chest inspection: normal inspection of the chest, symmetric chest movement and normal respiratory effort Auscultation: Bilateral: Clear to Auscultation Cardio Palpation: normal PMI Rate: regular rate Rhythm: irregularly irregular Heart sounds: S1 normal and S2 normal GI GI: normal to inspection, soft and bowel sounds present Neuro General: patient alert, patient awake, patient oriented x3 and moves all extremities Skin Skin: no rashes or lesions noted Extremities Pulses: Normal: Right Radial Pulse and Left Radial Pulse Lower Extremity Edema: None: Bilateral Psych Psychological: normal affect Assessment and Plan Assessment and Plan (1) Paroxysmal atrial fibrillation: Status: Chronic Orders: Orders: 12 Lead EKG performed by [facility] Today Cardiac Holter Monitor, Set-Up Today Cardiac Holter Monitor/Day Today Plan - Dr. Jayy Ga MD: It appears at this time he is back in atrial fibrillation. He will continue his current therapy. He will have a 24-hour Holter monitor to assess whether this may be paroxysmal versus persistent. Depending upon the findings he may need a repeat attempt at synchronized biphasic DC cardioversion versus continued conservative medical management. (2) Nonrheumatic mitral valve regurgitation: Status: Chronic Plan - Dr. Jayy Ga MD: He has had no significant change based on history or exam. His previous studies were reviewed. He will continue to be followed. (3) Pure hypercholesterolemia: Status: Chronic Plan - Dr. Jayy Ga MD: His recent lipid labs from 02-10-2021 were reviewed. His total cholesterol was 98 with an LDL of 33 and an HDL of 38. His triglycerides were 136. He will continue to be followed. (4) Essential hypertension: Status: Chronic Comment: CONTROLLED ON MED Plan - Dr. Jayy Ga MD: His blood pressure appears to be reasonably well controlled. He will continue medical therapy. Plan Details Additional Comments: Thank you for allowing me to participate in the care of your patient. Please don't hesitate to call if any issues arise. This note was generated using a voice recognition system and there may be incorrect words, spelling or punctuation that were not noted when reviewing the office note prior to saving. Follow Up: 6 Months (PFM) COVID (Procedure Consent) Procedure Criteria Procedure Criteria: Yes Elective The surgeon/proceduralist and patient have discussed in detail the risk of exposure to and/or potential harm posed by the COVID-19 virus with having a surgery/procedure at this time versus the risk of delaying the surgery/procedure. It is not possible to know either the risk of delaying the surgery or procedure or chance of getting an infection with perfect accuracy, but a joint decision was made between the patient and the surgeon/proceduralist to proceed at this time with the scheduled surgery/procedure as indicated on the consent form. Coding Level of Care Code Off vis,est,level 4 Diagnoses Paroxysmal atrial fibrillation I48.0 Nonrheumatic mitral valve regurgitation I34.0 Pure hypercholesterolemia E78.00 Essential hypertension I10 Coding Level of Care Code Off vis,est,level 4 Diagnoses Paroxysmal atrial fibrillation I48.0 Nonrheumatic mitral valve regurgitation I34.0 Pure hypercholesterolemia E78.00 Essential hypertension I10 Supplemental Info Supplemental Information Supplemental Information Echocardiogram in 03/2020: Left ventricular systolic function is normal. The estimated ejection fraction is 55 %. Mild diffuse mitral valve thickening. Moderate (2+) mitral valve insufficiency. Mild tricuspid valve insufficiency. Right ventricular systolic pressure estimated to be 31 mmHg. Unable to assess diastolic dysfunction. Labs: LDL Cholesterol 33 mg/dL (0-130) HDL Cholesterol 38 mg/dL (40-) L Triglycerides 136 mg/dL (-199) VLDL Cholesterol 27 mg/dL (5-40) Diagnostics: Electrocardiogram Echocardiogram Chest X-Ray Pulmonary: No Data to Display 05/05/21 1408<Electronically signed by Jayy Ga MD>Date Jayy Ga MD Cosigner Signature:Date (if applicable) CC: Dr. Chinedu Miranda MD ~ Addendum: The patient underwent further evaluation with a Holter monitor. Based upon the report from 04-29-2021 the patient remained in atrial fibrillation. The case was reviewed. A recommendation was made for the patient to consider repeat synchronized biphasic DC cardioversion. The procedure and risks were discussed with the patient. He was agreeable to this approach. Assessment & Plan Addt'l Comments I have re-examined the patient. There are no clinical changes since date of exam.
--- NOTE | 2021-05-20 12:53 | PCM.OP.PRO ---
Procedure Report Date of Procedure: 05/20/21 CONSCIOUS SEDATION REPORT DATE OF SERVICE: 05/20/2021 BRIEF HISTORY OF PRESENT ILLNESS: The patient is a 60-year-old male who presented to [facility] for an elective outpatient cardioversion due to underlying atrial fibrillation. The patient did previously undergo a cardioversion in April 2020, during which time, the patient required 60 mg of propofol to achieve an appropriate level of sedation. The patient is currently anticoagulated on Eliquis. His last surface echocardiogram revealed an ejection fraction of approximately 55%. He is a lifelong non-smoker and has never previously been diagnosed with obstructive sleep apnea. PHYSICAL EXAMINATION: VITAL SIGNS: Reviewed and were acceptable. GENERAL: The patient is a male, in no apparent distress, speaking in full sentences. HEENT: Normocephalic, atraumatic. Mucous membranes are moist and pink. Good mouth opening noted. Trachea is midline. CHEST: S1, S2 irregularly irregular. No murmurs, rubs or gallops were noted. LUNGS: Clear to auscultation bilaterally without appreciable wheezes, rales or rhonchi. ABDOMEN: Soft, nontender, nondistended. Positive bowel sounds. EXTREMITIES: There is no clubbing, cyanosis or edema. ASA Class: II DESCRIPTION OF PROCEDURE: After confirmation of informed consent, the patient's anesthesia plan was reviewed in detail. Propofol was chosen. Risks and benefits were reviewed and the patient agreed to proceed. At 1234, the patient was given 60 mg of propofol. The patient achieved an appropriate level of sedation and was given a 200 joule synchronized cardioversion by Dr. Ga at the bedside. This was successful in achieving normal sinus rhythm. The patient was monitored until 1246, at which time he reached his baseline mental status and function. The patient tolerated the procedure well. COMPLICATIONS: None ESTIMATED BLOOD LOSS: None RECOMMENDATIONS: Okay to recover in usual fashion. Procedures Pulmonary 9xxxx: [id number] Con Sedation
--- NOTE | 2021-05-20 12:55 | CARDIOVERS_ITS ---
Cardioversion Cardioversion: Date: 05-20-2021 Procedure: Synchronized Biphasic DC Cardioversion Indications: Atrial fibrillation Consent: Per the Patient Anesthesia: per Dr. Rodriguez of pulmonology and critical care medicine with propofol 60 mg IV push total Procedure: Synchronized Biphasic DC Cardioversion: 200 J x 1: Result: Sinus rhythm; PACs Complications: no apparent complications This note was generated with [employer] software. It may contain incorrect words, spelling, and punctuation that were not noted in checking the note before signing.
== END 2021-05-20 13:45 | disposition home or self-care (01) ==
LOC: CLSP 10:27
PROVIDERS: PCP Family Medicine Geriatric Medicine; Referring Provider Internal Medicine Cardiovascular Disease; Visit Provider Internal Medicine Cardiovascular Disease
DX: I48.0 Paroxysmal atrial fibrillation (principal); Z79.01 Long term (current) use of anticoagulants; I10 Essential (primary) hypertension; E78.5 Hyperlipidemia, unspecified; Z82.49 Family history of ischemic heart disease and other diseases of the circulatory system; E11.9 Type 2 diabetes mellitus without complications; E78.00 Pure hypercholesterolemia, unspecified; Z79.4 Long term (current) use of insulin; I34.0 Nonrheumatic mitral (valve) insufficiency
CPT/HCPCS: 92960; 93005; J7040

== ENCOUNTER → 2021-08-12 14:56 | Outpatient (CLI) | payer MEDICARE, MEDICAID, SELFPAY ==
[2021-08-12 16:38] LABS: Absolute Lymphocyte Count 1.85 X10^3/uL (0.83-4.51); Absolute Neutrophil Count 4.8 X10^3/uL (2.0-7.7); Basophil# 0.05 X10^3/uL; Basophil% 0.6 % (0-1); Eosinophil# 0.33 X10^3/uL; Eosinophils% 4.2 % (0-5); Hematocrit 36.6 % (40-54); Hemoglobin 11.7 g/dL (13.0-16.5); Lymphocyte # 1.85 X10^3/ul (0.83-4.51); Lymphocyte % 23.8 % (19-41); Mean Corpuscular Hgb 28.3 pg (27.0-32.0); Mean Corpuscular Volume 88.6 fL (80-94); Mean Platelet Vol. 10.2 fl (6.2-12.0); NRBC Flagged by Analyzer 0 % (0-5); Neutrophil # 4.83 X10^3/uL (2.7-7.7); Neutrophil % 62.1 % (47-70); Platelet Count 348 K/mm3 (150-450); RBC Distribution Width CV 17.1 % (11.6-14.6); RBC Distribution Width SD 54.8 fl (35.1-43.9); Red Blood Count 4.13 M/mm3 (4.6-6.2); White Blood Count 7.8 K/mm3 (4.4-11.0)
[2021-08-12 17:03] LABS: ALB/GLOB Ratio 0.9 RATIO (0.9-2.4); AST(SGOT) 17 U/L (15-37); Alanine Aminotransfer ALT/SGPT 19 U/L (16-61); Albumin, Serum 3.6 g/dL (3.2-5.0); Alkaline Phosphatase 57 U/L (45-117); Anion Gap 6 (5-15); BUN 13 mg/dL (7-18); BUN/Creat Ratio 13.3 RATIO (10-20); Chloride 104 mmol/L (98-107); Creatinine, Serum 0.98 mg/dL (0.70-1.30); EST Glomerular Filtration Rate 83 mL/min (>60); Est Glom Filt Rate - Afr Amer 101 mL/min (>60); Globulin 4.2 g/dL (2.2-4.2); Glucose 148 mg/dL (74-106); Potassium 3.9 mmol/L (3.5-5.1); Protein, Total 7.8 g/dL (6.4-8.2); Sodium Level 139 mmol/L (136-145); Thyroid Stim Hormone (TSH) 0.98 uIU/mL (0.358-3.74)
== END ==
PROVIDERS: PCP Family Medicine Geriatric Medicine; Visit Provider Family Medicine Geriatric Medicine
DX: E11.9 Type 2 diabetes mellitus without complications (principal); I10 Essential (primary) hypertension
CPT/HCPCS: 36415; 80053; 84443; 85025

== ENCOUNTER 2021-11-10 14:56 | Outpatient (CLI) | payer MEDICARE, MEDICAID, SELFPAY ==
[2021-11-10 15:52] LABS: Absolute Lymphocyte Count 2.16 X10^3/uL (0.83-4.51); Absolute Neutrophil Count 4.6 X10^3/uL (2.0-7.7); Basophil# 0.06 X10^3/uL; Basophil% 0.7 % (0-1); Eosinophil# 0.47 X10^3/uL; Eosinophils% 5.7 % (0-5); Hematocrit 37.8 % (40-54); Hemoglobin 12.4 g/dL (13.0-16.5); Lymphocyte # 2.16 X10^3/ul (0.83-4.51); Lymphocyte % 26.3 % (19-41); Mean Corp Hgb Conc 32.8 g/dL (32-36); Mean Corpuscular Hgb 29.3 pg (27.0-32.0); Mean Corpuscular Volume 89.4 fL (80-94); Mean Platelet Vol. 9.7 fl (6.2-12.0); NRBC Flagged by Analyzer 0 % (0-5); Neutrophil # 4.58 X10^3/uL (2.7-7.7); Neutrophil % 55.8 % (47-70); Platelet Count 311 K/mm3 (150-450); RBC Distribution Width CV 14.5 % (11.6-14.6); RBC Distribution Width SD 46.8 fl (35.1-43.9); Red Blood Count 4.23 M/mm3 (4.6-6.2); White Blood Count 8.2 K/mm3 (4.4-11.0)
[2021-11-10 16:26] LABS: ALB/GLOB Ratio 0.8 RATIO (0.9-2.4); AST(SGOT) 22 U/L (15-37); Alanine Aminotransfer ALT/SGPT 26 U/L (16-61); Albumin, Serum 3.6 g/dL (3.2-5.0); Alkaline Phosphatase 72 U/L (45-117); Anion Gap 5 (5-15); BUN 15 mg/dL (7-18); BUN/Creat Ratio 17.4 RATIO (10-20); Chloride 101 mmol/L (98-107); Creatinine, Serum 0.86 mg/dL (0.70-1.30); EST Glomerular Filtration Rate 96 mL/min (>60); Est Glom Filt Rate - Afr Amer 116 mL/min (>60); Globulin 4.6 g/dL (2.2-4.2); Glucose 95 mg/dL (74-106); Potassium 4.3 mmol/L (3.5-5.1); Protein, Total 8.2 g/dL (6.4-8.2); Sodium Level 136 mmol/L (136-145)
== END 2021-11-10 23:59 | disposition short-term general hospital (02) ==
LOC: POLAB3 14:58
PROVIDERS: PCP Family Medicine Geriatric Medicine; Visit Provider Family Medicine Geriatric Medicine
DX: E11.9 Type 2 diabetes mellitus without complications (principal); I10 Essential (primary) hypertension
CPT/HCPCS: 36415; 80053; 84443; 85025

== ENCOUNTER 2021-11-26 13:07 | Outpatient (CLI) | payer MEDICARE, MEDICAID, SELFPAY ==
--- NOTE | 2021-11-26 13:11 | ECHOD_ITS ---
Reason For Study: MURMUR Procedure This was a 2D Doppler, Color Flow transthoracic echocardiogram. The study was technically difficult. Exam performed in department. Left Ventricle Normal LV size. Left ventricular systolic function is normal. The estimated ejection fraction is 60 %. No evidence for diastolic dysfunction. No regional wall motion abnormalities noted. Right Ventricle Normal RV size. Normal systolic function. Atria Normal left atrium. Normal right atrium. No doppler evidence for ASD. Mitral Valve There is no mitral annular calcification. Normal mitral valve. Mild (1+) mitral valve insufficiency. Tricuspid Valve Normal tricuspid valve. Mild tricuspid valve insufficiency. Right ventricular systolic pressure estimated to be 34 mmHg. Aortic Valve Trisinus/trileaflet aortic valve. Mild focal aortic valve thickening. Mild focal aortic valve calcification. Pulmonic Valve The pulmonic valve is not well visualized. Trivial pulmonic valve insufficiency. Great Vessels Normal sized aortic root. Pericardium/Pleural No pericardial effusion. MMode/2D Measurements & Calculations LVIDd: 6.0 cm IVSd: 1.1 cm Ao root diam: 3.2 cm LVIDs: 4.1 cm LVPWd: 1.1 cm RVDd: 3.2 cm FS: 32.7 % LAV(MOD-bp): 50.6 ml LA A4 area: 17.8 cm2 LA dimension(2D): 3.5 cm LAV(MOD-bp) Indexed: 28.3 ml/m2 LAV(MOD-sp2): 50.5 ml LAV(MOD-sp4): 47.6 ml RA A4 area: 16.3 cm2 Time Measurements MV dec time: 0.21 sec Doppler Measurements & Calculations MV E max oz: 94.4 cm/sec Lat Peak E' Oz: 11.6 cm/sec Med Peak E' Oz: 8.6 cm/sec MV A max oz: 97.6 cm/sec E/E' lat: 8.1 E/E' med: 11.0 MV E/A: 0.97 Ao V2 max: 149.3 cm/sec LV V1 max: 100.0 cm/sec PA V2 max: 129.5 cm/sec Ao max P.9 mmHg LV V1 max P.0 mmHg TR max oz: 279.3 cm/sec TR max P.2 mmHg ECHO/Echo Complete Interpretation Summary The study was technically difficult. Left ventricular systolic function is normal. The estimated ejection fraction is 60 %. Mild (1+) mitral valve insufficiency. Mild tricuspid valve insufficiency. Mild focal aortic valve thickening. Mild focal aortic valve calcification. Trivial pulmonic valve insufficiency. Right ventricular systolic pressure estimated to be 34 mmHg. No evidence for diastolic dysfunction. Ordering Physician: Joelle Phillips Referring Physician: Chinedu Miranda Chi Performed By: Char Orellana RDCS, RVT
== END 2021-11-26 23:59 | disposition home or self-care (01) ==
PROVIDERS: PCP Family Medicine Geriatric Medicine; Referring Provider Physician Assistant Medical; Visit Provider Physician Assistant Medical
DX: I34.0 Nonrheumatic mitral (valve) insufficiency (principal)
CPT/HCPCS: 93306

== ENCOUNTER → 2022-06-11 | Outpatient (CLI) | payer MEDICARE, MEDICAID, SELFPAY ==
[2022-06-11 15:44] LABS: Absolute Lymphocyte Count 1.21 X10^3/uL (0.83-4.51); Absolute Neutrophil Count 3.9 X10^3/uL (2.0-7.7); Basophil# 0.04 X10^3/uL; Basophil% 0.7 % (0-1); Eosinophil# 0.25 X10^3/uL; Eosinophils% 4.2 % (0-5); Hematocrit 36.3 % (40-54); Lymphocyte # 1.21 X10^3/ul (0.83-4.51); Lymphocyte % 20.5 % (19-41); Mean Corp Hgb Conc 33.1 g/dL (32-36); Mean Corpuscular Hgb 29.4 pg (27.0-32.0); Mean Platelet Vol. 9.6 fl (6.2-12.0); Monocyte# 0.44 X10^3/uL; Monocyte% 7.5 % (0-10); NRBC Flagged by Analyzer 0 % (0-5); Neutrophil # 3.93 X10^3/uL (2.7-7.7); Neutrophil % 66.8 % (47-70); Platelet Count 347 K/mm3 (150-450); RBC Distribution Width CV 15.8 % (11.6-14.6); RBC Distribution Width SD 51.3 fl (35.1-43.9); Red Blood Count 4.08 M/mm3 (4.6-6.2); White Blood Count 5.9 K/mm3 (4.4-11.0)
[2022-06-11 16:03] LABS: ALB/GLOB Ratio 0.8 RATIO (0.9-2.4); AST(SGOT) 18 U/L (15-37); Alanine Aminotransfer ALT/SGPT 21 U/L (16-61); Albumin, Serum 3.5 g/dL (3.2-5.0); Alkaline Phosphatase 64 U/L (45-117); Anion Gap 8 (5-15); BUN 14 mg/dL (7-18); Calcium,Total 9.1 mg/dL (8.5-10.1); Chloride 103 mmol/L (98-107); EST Glomerular Filtration Rate 81 mL/min (>60); Est Glom Filt Rate - Afr Amer 98 mL/min (>60); Globulin 4.3 g/dL (2.2-4.2); Glucose 233 mg/dL (74-106); Protein, Total 7.8 g/dL (6.4-8.2); Sodium Level 137 mmol/L (136-145); Thyroid Stim Hormone (TSH) 0.75 uIU/mL (0.358-3.74)
== END | disposition home or self-care (01) ==
LOC: POLAB3 09:13
PROVIDERS: PCP Family Medicine Geriatric Medicine; Visit Provider Family Medicine Geriatric Medicine
DX: E11.9 Type 2 diabetes mellitus without complications (principal); I10 Essential (primary) hypertension
CPT/HCPCS: 36415; 80053; 84443; 85025

== ENCOUNTER → 2022-10-15 | Outpatient (CLI) | payer MEDICARE, MEDICAID, SELFPAY ==
[2022-10-15 12:56] LABS: Absolute Lymphocyte Count 1.61 X10^3/uL (0.83-4.51); Absolute Neutrophil Count 5.3 X10^3/uL (2.0-7.7); Basophil# 0.05 X10^3/uL; Basophil% 0.6 % (0-1); Eosinophil# 0.31 X10^3/uL; Hematocrit 36.4 % (40-54); Hemoglobin 11.8 g/dL (13.0-16.5); Lymphocyte # 1.61 X10^3/ul (0.83-4.51); Lymphocyte % 20.7 % (19-41); Mean Corp Hgb Conc 32.4 g/dL (32-36); Mean Corpuscular Hgb 29.9 pg (27.0-32.0); Mean Corpuscular Volume 92.2 fL (80-94); Mean Platelet Vol. 9.5 fl (6.2-12.0); Monocyte# 0.48 X10^3/uL; Monocyte% 6.2 % (0-10); NRBC Flagged by Analyzer 0 % (0-5); Neutrophil # 5.27 X10^3/uL (2.7-7.7); Platelet Count 301 K/mm3 (150-450); RBC Distribution Width CV 15.1 % (11.6-14.6); RBC Distribution Width SD 51.8 fl (35.1-43.9); Red Blood Count 3.95 M/mm3 (4.6-6.2); White Blood Count 7.8 K/mm3 (4.4-11.0)
[2022-10-15 13:26] LABS: ALB/GLOB Ratio 0.8 RATIO (0.9-2.4); AST(SGOT) 15 U/L (15-37); Alanine Aminotransfer ALT/SGPT 18 U/L (16-61); Albumin, Serum 3.4 g/dL (3.2-5.0); Alkaline Phosphatase 61 U/L (45-117); Anion Gap 5 (5-15); BUN 14 mg/dL (7-18); BUN/Creat Ratio 15.6 RATIO (10-20); Calcium,Total 8.7 mg/dL (8.5-10.1); Chloride 102 mmol/L (98-107); EST Glomerular Filtration Rate 91 mL/min (>60); Est Glom Filt Rate - Afr Amer 111 mL/min (>60); Globulin 4.3 g/dL (2.2-4.2); Glucose 269 mg/dL (74-106); Potassium 3.7 mmol/L (3.5-5.1); Protein, Total 7.7 g/dL (6.4-8.2); Sodium Level 135 mmol/L (136-145); Thyroid Stim Hormone (TSH) 1.15 uIU/mL (0.358-3.74)
== END | disposition home or self-care (01) ==
LOC: POLAB3 12:15
PROVIDERS: PCP Family Medicine Geriatric Medicine; Visit Provider Family Medicine Geriatric Medicine
DX: I10 Essential (primary) hypertension (principal); E11.9 Type 2 diabetes mellitus without complications
CPT/HCPCS: 36415; 80053; 84443; 85025

== ENCOUNTER → 2022-10-20 | Outpatient (CLI) | payer MEDICARE, MEDICAID, SELFPAY ==
--- NOTE | 2022-10-20 11:45 | RAD_ITS ---
INDICATION: PAIN EXAMINATION/TECHNIQUE: X-RAY - RIGHT XR Wrist Min 3 Views 3 VIEWS COMPARISON: None. FINDINGS: BONES: Acute fracture triquetrum. JOINTS: No dislocation. SOFT TISSUES: Soft tissue swelling mainly dorsally. RAD/Wrist min 3 Views IMPRESSION: Acute triquetral fracture. Electronically Signed: Vira Johnson MD at 7:56 EST ,
== END | disposition home or self-care (01) ==
LOC: RAD 11:35
PROVIDERS: PCP Family Medicine Geriatric Medicine; Visit Provider Family Medicine Geriatric Medicine
DX: M25.532 Pain in left wrist (principal)
CPT/HCPCS: 73110

== ENCOUNTER → 2023-02-23 | Outpatient (CLI) | payer MEDICARE, MEDICAID, SELFPAY ==
[2023-02-23 13:52] LABS: Absolute Lymphocyte Count 1.65 X10^3/uL (0.83-4.51); Absolute Neutrophil Count 4.8 X10^3/uL (2.0-7.7); Basophil# 0.04 X10^3/uL; Basophil% 0.6 % (0-1); Eosinophil# 0.25 X10^3/uL; Eosinophils% 3.4 % (0-5); Hematocrit 37.8 % (40-54); Hemoglobin 12.5 g/dL (13.0-16.5); Lymphocyte # 1.65 X10^3/ul (0.83-4.51); Lymphocyte % 22.7 % (19-41); Mean Corp Hgb Conc 33.1 g/dL (32-36); Mean Corpuscular Hgb 30.1 pg (27.0-32.0); Mean Corpuscular Volume 91.1 fL (80-94); Mean Platelet Vol. 9.9 fl (6.2-12.0); Monocyte# 0.53 X10^3/uL; Monocyte% 7.3 % (0-10); NRBC Flagged by Analyzer 0 % (0-5); Neutrophil # 4.77 X10^3/uL (2.7-7.7); Neutrophil % 65.6 % (47-70); Platelet Count 296 K/mm3 (150-450); RBC Distribution Width CV 15.2 % (11.6-14.6); RBC Distribution Width SD 49.4 fl (35.1-43.9); Red Blood Count 4.15 M/mm3 (4.6-6.2); White Blood Count 7.3 K/mm3 (4.4-11.0)
[2023-02-23 14:31] LABS: ALB/GLOB Ratio 0.9 RATIO (0.9-2.4); AST(SGOT) 19 U/L (15-37); Alanine Aminotransfer ALT/SGPT 21 U/L (16-61); Albumin, Serum 3.7 g/dL (3.2-5.0); Alkaline Phosphatase 70 U/L (45-117); Anion Gap 6 (5-15); BUN 12 mg/dL (7-18); BUN/Creat Ratio 12.1 RATIO (10-20); Calcium,Total 8.9 mg/dL (8.5-10.1); Chloride 102 mmol/L (98-107); EST Glomerular Filtration Rate 81 mL/min (>60); Est Glom Filt Rate - Afr Amer 98 mL/min (>60); Globulin 4.1 g/dL (2.2-4.2); Glucose 210 mg/dL (74-106); Potassium 4.4 mmol/L (3.5-5.1); Protein, Total 7.8 g/dL (6.4-8.2); Sodium Level 137 mmol/L (136-145); Thyroid Stim Hormone (TSH) 1.33 uIU/mL (0.358-3.74)
== END | disposition home or self-care (01) ==
LOC: POLAB3 12:06
PROVIDERS: PCP Family Medicine Geriatric Medicine; Visit Provider Family Medicine Geriatric Medicine
DX: E11.65 Type 2 diabetes mellitus with hyperglycemia (principal); I10 Essential (primary) hypertension
CPT/HCPCS: 36415; 80053; 84153; 84443; 85025; 87086; 87088; G0103

== ENCOUNTER → 2023-05-25 | Outpatient (CLI) | payer MEDICARE, MEDICAID, SELFPAY ==
[2023-05-25 12:46] LABS: Absolute Lymphocyte Count 1.32 X10^3/uL (0.83-4.51); Absolute Neutrophil Count 4.8 X10^3/uL (2.0-7.7); Basophil# 0.06 X10^3/uL; Basophil% 0.9 % (0-1); Eosinophil# 0.16 X10^3/uL; Eosinophils% 2.4 % (0-5); Hematocrit 40.8 % (40-54); Hemoglobin 12.9 g/dL (13.0-16.5); Lymphocyte # 1.32 X10^3/ul (0.83-4.51); Lymphocyte % 19.4 % (19-41); Mean Corp Hgb Conc 31.6 g/dL (32-36); Mean Corpuscular Hgb 28.6 pg (27.0-32.0); Mean Corpuscular Volume 90.5 fL (80-94); Mean Platelet Vol. 9.6 fl (6.2-12.0); Monocyte# 0.41 X10^3/uL; NRBC Flagged by Analyzer 0 % (0-5); Neutrophil # 4.82 X10^3/uL (2.7-7.7); Platelet Count 308 K/mm3 (150-450); Red Blood Count 4.51 M/mm3 (4.6-6.2); White Blood Count 6.8 K/mm3 (4.4-11.0)
[2023-05-25 12:54] LABS: Hemoglobin A1c 9.9 % (3.8-5.6)
[2023-05-25 13:44] LABS: ALB/GLOB Ratio 0.7 RATIO (0.9-2.4); AST(SGOT) 14 U/L (15-37); Alanine Aminotransfer ALT/SGPT 14 U/L (16-61); Albumin, Serum 3.3 g/dL (3.2-5.0); Alkaline Phosphatase 78 U/L (45-117); Anion Gap 7 (5-15); BUN 11 mg/dL (7-18); BUN/Creat Ratio 11.2 RATIO (10-20); Calcium,Total 8.7 mg/dL (8.5-10.1); Chloride 100 mmol/L (98-107); Cholesterol 113 mg/dL (200); Creatinine, Serum 0.99 mg/dL (0.70-1.30); EST Glomerular Filtration Rate 82 mL/min (>60); Est Glom Filt Rate - Afr Amer 99 mL/min (>60); Globulin 4.6 g/dL (2.2-4.2); Glucose 276 mg/dL (74-106); High Density Lipoprotein 40 mg/dL; Potassium 4.1 mmol/L (3.5-5.1); Protein, Total 7.9 g/dL (6.4-8.2); Sodium Level 135 mmol/L (136-145); Thyroid Stim Hormone (TSH) 1.29 uIU/mL (0.358-3.74); Triglycerides 154 mg/dL; Very Low Density Lipoprotein 31 mg/dL (5-40)
== END | disposition home or self-care (01) ==
PROVIDERS: PCP Family Medicine Geriatric Medicine; Visit Provider Family Medicine Geriatric Medicine
DX: I10 Essential (primary) hypertension (principal); E11.65 Type 2 diabetes mellitus with hyperglycemia
CPT/HCPCS: 36415; 80053; 80061; 83036; 84443; 85025

== ENCOUNTER → 2023-10-28 | Outpatient (CLI) | payer MEDICARE, MEDICAID, SELFPAY ==
--- OUTSIDE RECORDS SUMMARY | 2023-10-28 10:56 | XMS RPT_ITS | CCD ---
Author Name Unknown Address [address] [place] [address] Organization [facility] Care Team Providers Care Safety Lamp Keeper Name Role Phone Ana M Maddox Unavailable Unavailable Sury BURNS, Jayy Kerns Unavailable Ana M Maddox Unavailable Unavailable Sveta Peraza Unavailable Unavailable NILDA Phillips, Joelle Cutler Unavailable Ana M Maddox Unavailable Unavailable Allergies Allergy Classification Reported Allergen(s) Allergy Type Date of Onset Reaction(s) Facility (8 sources) NKDA; Translations: [NKDA] allergy to substance 2 [facility] Work Phone: NEGATED: Highlighted row has been ruled out! (6 sources) Observed No Known Drug Allergies at [facility] No Known Allergies 7 propensity to adverse reactions [facility] Work Phone: Medications Completed/Discontinued Medications Medication Drug Class(es) Dates Sig (Normalized) Sig (Original) aspirin 81 mg delayed release oral tablet (6 sources) Nonsteroidal Anti-inflammatory Drug Start: 12-04-2016 ASPIRIN 81 MG TBEC one tab once daily ASPIRIN [id number] Savanna Rosario NP fenofibrate 145 mg oral tablet (20 sources) Peroxisome Proliferator Receptor alpha Agonist Start: 01-07-2011 End: 05-20-2015 take 1 tablet by mouth once daily FENOFIBRATE 145 MG TABS One tablet by mouth daily FENOFIBRATE [id number] Jayy Ga MD LIRAGLUTIDE SOLN (6 sources) GLP-1 Receptor Agonist Start: 05-20-2015 take 1.8 mg by subcutaneous injection once daily VICTOZA SOPN 1.8mg SQ once a day LIRAGLUTIDE SOLN [id number] Jayy Ga MD Problems Active Problems Problem Classification Problem Date Documented Date Episodic/Chronic Cardiac dysrhythmias (12 sources) Atrial fibrillation; Translations: [Paroxysmal atrial fibrillation] Onset: 01-07-2011 01-07-2011 Chronic Diabetes mellitus without complication (6 sources) Diabetes mellitus; Translations: [Type 2 diabetes mellitus without complications] Onset: 01-07-2011 01-07-2011 Chronic Disorders of lipid metabolism (6 sources) Hyperlipidemia; Translations: [Hyperlipidemia, unspecified] Onset: 01-07-2011 01-07-2011 Chronic Heart valve disorders (20 sources) Mitral valve disorder; Translations: [Non-rheumatic mitral regurgitation ] Onset: 01-07-2011 Resolved: 05-14-2016 01-07-2011 Chronic Other nutritional; endocrine; and metabolic disorders (20 sources) Body mass index (BMI) 30.0-30.9, adult; Translations: [Body mass index (BMI) 31.0-31.9, adult] Onset: 02-08-2014 Resolved: 11-18-2015 12-04-2016 Chronic Other nutritional; endocrine; and metabolic disorders (4 sources) Body mass index (BMI) 31.0-31.9, adult; Translations: [Body mass index (BMI) 31.0-31.9, adult] Onset: 08-27-2014 05-18-2016 Chronic Unclassified (2 sources) Long-term drug therapy; Translations: [Other continuous churn buttermaker (current) drug therapy] Onset: 01-07-2011 01-07-2011 Past or Other Problems Problem Classification Problem Date Documented Da te Episodic/Chronic Heart valve disorders (12 sources) Heart murmur; Translations: [Cardiac murmur, unspecified] Onset: 01-07-2011 Resolved: 05-14-2016 05-14-2016 Episodic Other aftercare (4 sources) Other [facility] (current) drug therapy; Translations: [Other [facility]p (current) drug therapy] Onset: 01-07-2011 01-07-2011 Episodic Other nutritional; endocrine; and metabolic disorders (10 sources) Body mass index (BMI) 29.0-29.9, adult; Translations: [Body Mass Index 27.0-27.9, adult] Onset: 08-27-2014 11-18-2015 Episodic Other nutritional; endocrine; and metabolic disorders (2 sources) Body Mass Index 27.0-27.9, adult; Translations: [Body Mass Index 27.0-27.9, adult] Onset: 08-27-2014 05-20-2015 Episodic Residual codes; unclassified (2 sources) FH: Hypertension; Translations: [Family history of ischemic heart disease and other diseases of the circulatory system] 08-27-2014 Episodic Syncope (6 sources) Syncope and collapse; Translations: [Syncope and collapse] Onset: 06-19-2013 06-19-2013 Episodic Unclassified (10 sources) FH: Raised blood lipids; Translations: [FH: Hypertension] 08-27-2014 Episodic Results Test Name Value Interpretation Reference Range Facil ity Vital Signs Date Time Vital Sign Value Performing Clinician Trang brandon 06-16-2017 13:03-0400 BMI (Body Mass Index) 30.66 kg/m2 Sveta Aragon [facility] Work Phone: 06-16-2017 13:03-0400 BP Diastolic 64 mm[Hg] Sveta [facility] Work Phone: 06-16-2017 13:03-0400 BP Systolic 112 mm[Hg] Sveta [facility] Work Phone: 06-16-2017 13:03-0400 Height 167.64 cm Sveta [facility]agon [facility] Work Phone: 06-16-2017 13:03-0400 Pulse (Heart Rate) 72 /min Sveta [facility]agon [facility] Work Phone: 06-16-2017 13:03-0400 Respiratory Rate 16 /min Sveta [facility] Work Phone: 06-16-2017 13:03-0400 Weight 86.18 kg Sveta Aragon [facility] Work Phone: 12-04-2016 10:20-0500 Heart rate 61 /min Joelle Phillips PA-C [facility] Work Phone: 12-04-2016 10:03-0500 BSA (Body Surface Area) 1.94 m2 Sveta [facility] Work Phone: 12-01-2012 09:09-0500 Heart rate 383 ms Joelle Phillips PA-C [facility] Work Phone: 11-12-2011 10:21-0500 Height 167.64 cm Sveta Peraza [facility] Work Phone: 11-12-2011 10:21-0500 Pulse (Heart Rate) 72 /min Sveta [facility] Work Phone: Procedures Date Procedure Procedure Detail Performing Clinician Start: 06-24-2017 End: 07-02-2017 *Hepatic Function Panel Joelle ball PA-C Work Phone: Start: 06-24-2017 End: 07-02-2017 Lipid 1996 panel - Serum or Plasma Joelle Phillips PA-C Work Phone: Start: 06-24-2017 End: 07-02-2017 *Hepatic Function Panel Joelle ball PA-C Work Phone: Start: 06-24-2017 End: 07-02-2017 Lipid panel [AGGREGATE] Joelle ball PA-C Work Phone: Start: 06-16-2017 End: 07-13-2017 *Hepatic Function Panel Jayy Ga MD Start: 06-16-2017 End: 06-16-2017 Follow Up Appt 6 months Jayy Ga MD Start: 06-16-2017 End: 07-13-2017 Lipid 1996 panel - Serum or Plasma Jayy Ga MD Start: 06-16-2017 End: 06-16-2017 MMM Jayy Ga MD Start: 06-16-2017 End: 06-16-2017 Dietary management education, guidance, and counseling Joelle Phillips PA-C Start: 06-16-2017 End: 06-30-2017 *Hepatic Function Panel Jayy Ga MD Start: 06-16-2017 End: 06-16-2017 Follow Up Appt 6 months Jayy Ga MD Start: 06-16-2017 End: 06-30-2017 Lipid panel [AGGREGATE] Jayy Ga MD Start: 06-16-2017 End: 06-16-2017 MMM Jayy Ga MD Start: 12-04-2016 End: 12-16-2016 *Hepatic Function Panel Savanna Rosario [employer] TECHNICIAN Work Phone: Start: 12-04-2016 End: 12-04-2016 Follow Up Appt 6 months Savanna Rosario [employer] TECHNICIAN Work Phone: Start: 12-04-2016 End: 12-16-2016 Lipid 1996 panel - Serum or Plasma Savanna Rosario PIPE ORGAN TECHNICIAN Work Phone: Start: 12-04-2016 End: 12-04-2016 PFM Savanna Rosario PIPE ORGAN TECHNICIAN Work Phone: Start: 12-04-2016 End: 12-16-2016 *Hepatic Function Panel Savanna Rosario PIPE [employer]GAN TECHNICIAN Work Phone: Start: 12-04-2016 End: 12-04-2016 Follow Up Appt 6 months Savanna Rosario PIPE ORGAN TECHNICIAN Work Phone: Start: 12-04-2016 End: 12-16-2016 Lipid panel [AGGREGATE] Savanna Rosario PIPE [employer]GAN TECHNICIAN Work Phone: Start: 12-04-2016 End: 12-04-2016 PFM Savanna Rosario PIPE [employer] TECHNICIAN Work Phone: Start: 05-18-2016 End: 05-18-2016 Follow Up Appt 6 months Jayy Ga MD Start: 05-18-2016 End: 05-18-2016 MMM Jayy Ga MD Start: 05-18-2016 End: 05-18-2016 Follow Up Appt 6 months Jayy Ga MD Start: 05-18-2016 End: 05-18-2016 MMM Jayy Ga MD Start: 02-10-2016 End: 11-04-2016 *Hepatic Function Panel Jayy Ga MD Start: 02-10-2016 End: 11-04-2016 Lipid 1996 panel - Serum or Plasma Jayy Ga MD Start: 02-10-2016 End: 11-04-2016 *Hepatic Function Panel Jayy Ga MD Start: 02-10-2016 End: 11-04-2016 Lipid panel [AGGREGATE] Jayy Ga MD Start: 11-18-2015 End: 11-18-2015 Ecg routine ecg w/least 12 lds w/i&r Joelle Phillips PA-C Work Phone: Start: 11-18-2015 End: 11-18-2015 Follow Up Appt 6 months Joelle ball PA-C Work Phone: Start: 11-18-2015 End: 11-18-2015 PF Joelle Phillips PA-C Work Phone: Start: 11-18-2015 End: 11-18-2015 Electrocardiogram, complete Joelle Cano PA-C Work Phone: Start: 11-18-2015 End: 11-18-2015 Follow Up Appt 6 months Joelle ball PA-C Work Phone: Start: 11-18-2015 End: 11-18-2015 PF Joelle Phillips PA-C Work Phone: Start: 08-11-2015 End: 08-12-2015 *Hepatic Function Panel Jayy Ga MD Start: 08-11-2015 End: 08-12-2015 Lipid 1996 panel - Serum or Plasma Jayy Ga MD Start: 08-11-2015 End: 08-12-2015 *Hepatic Function Panel Jayy Ga MD Start: 08-11-2015 End: 08-12-2015 Lipid panel [AGGREGATE] Jayy Ga MD Start: 05-20-2015 End: 05-20-2015 *Hepatic Function Panel Jayy Ga MD Start: 05-20-2015 End: 05-21-2015 Documentation of current medications Jayy Ga MD Start: 05-20-2015 End: 05-20-2015 Follow Up Appt 6 months Jayy Ga MD Start: 05-20-2015 End: 05-20-2015 Lipid 1996 panel - Serum or Plasma Jayy Ga MD Start: 05-20-2015 End: 05-20-2015 MMM Jayy Ga MD Start: 05-20-2015 End: 05-20-2015 *Hepatic Function Panel Jayy Ga MD Start: 05-20-2015 End: 05-21-2015 Documentation of current medications Jayy Ga MD Start: 05-20-2015 End: 05-20-2015 Follow Up Appt 6 months Jayy Ga MD Start: 05-20-2015 End: 05-20-2015 Lipid panel [AGGREGATE] Jayy Ga MD Start: 05-20-2015 End: 05-20-2015 MMM Jayy Ga MD Start: 11-11-2014 End: 08-12-2015 *Hepatic Function Panel Jayy Ga MD Start: 11-11-2014 End: 08-12-2015 Lipid 1996 panel - Serum or Plasma Jayy Ga MD Start: 11-11-2014 End: 08-12-2015 *Hepatic Function Panel Jayy Ga MD Start: 11-11-2014 End: 08-12-2015 Lipid panel [AGGREGATE] Jayy Ga MD Start: 08-27-2014 End: 08-27-2014 Follow Up Appt 6 months Joelle ball PA-C Work Phone: Start: 08-27-2014 End: 08-27-2014 PFM Joelle Phillips PA-C Work Phone: Start: 08-27-2014 End: 08-27-2014 Follow Up Appt 6 months Joelle ball PA-C Work Phone: Start: 08-27-2014 End: 08-27-2014 PF Joelle Phillips PA-C Work Phone: Start: 05-11-2014 End: 05-19-2014 *Hepatic Function Panel Jayy Ga MD Start: 05-11-2014 End: 05-19-2014 Lipid 1996 panel - Serum or Plasma Jayy Ga MD Start: 05-11-2014 End: 05-19-2014 *Hepatic Function Panel Jayy Ga MD Start: 05-11-2014 End: 05-19-2014 Lipid panel [AGGREGATE] Jayy Ga MD Start: 02-08-2014 End: 02-08-2014 Ecg routine ecg w/least 12 lds w/i&r Jayy Ga MD Start: 02-08-2014 End: 02-08-2014 Follow Up Appt 6 months Jayy Ga MD Start: 02-08-2014 End: 02-08-2014 MMM Jayy Ga MD Start: 02-08-2014 End: 02-08-2014 Electrocardiogram, complete Jayy lantigua MD Start: 02-08-2014 End: 02-08-2014 Follow Up Appt 6 months Jayy Ga MD Start: 02-08-2014 End: 02-08-2014 MMM Jayy Ga MD Start: 11-11-2013 End: 11-15-2013 *Hepatic Function Panel Jayy Ga MD Start: 11-11-2013 End: 11-15-2013 Lipid 1996 panel - Serum or Plasma Jayy Ga MD Start: 11-11-2013 End: 11-15-2013 *Hepatic Function Panel Jayy Ga MD Start: 11-11-2013 End: 11-15-2013 Lipid panel [AGGREGATE] Jayy Ga MD Start: 06-19-2013 End: 06-19-2013 Follow Up Appt 6 months Joelle ball PA-C Work Phone: Start: 06-19-2013 End: 06-19-2013 [facility] Joelle Phillips PA-C Work Phone: Start: 06-19-2013 End: 06-19-2013 Follow Up Appt 6 months Joelle ball PA-C Work Phone: Start: 06-19-2013 End: 06-19-2013 PF Joelle Phillips PA-C Work Phone: Start: 05-11-2013 End: 05-16-2013 *Hepatic Function Panel Jayy Ga MD Start: 05-11-2013 End: 05-16-2013 Lipid 1996 panel - Serum or Plasma Jayy Ga MD Start: 05-11-2013 End: 05-16-2013 *Hepatic Function Panel Jayy Ga MD Start: 05-11-2013 End: 05-16-2013 Lipid panel [AGGREGATE] Jayy Ga MD Start: 12-01-2012 End: 12-01-2012 Ecg routine ecg w/least 12 lds w/i&r Jayy Ga MD Start: 12-01-2012 End: 12-01-2012 Follow Up Appt 6 months Jayy Ga MD Start: 12-01-2012 End: 12-01-2012 MMM Jayy Ga MD Start: 12-01-2012 End: 12-01-2012 Electrocardiogram, complete Jayy lantigua MD Start: 12-01-2012 End: 12-01-2012 Follow Up Appt 6 months Jayy Ga MD Start: 12-01-2012 End: 12-01-2012 MMM Jayy Ga MD Start: 11-11-2012 End: 11-23-2012 *Hepatic Function Panel Jayy Ga MD Start: 11-11-2012 End: 11-23-2012 Lipid 1996 panel - Serum or Plasma Jayy Ga MD Start: 11-11-2012 End: 11-23-2012 *Hepatic Function Panel Jayy Ga MD Start: 11-11-2012 End: 11-23-2012 Lipid panel [AGGREGATE] Jayy Ga MD Start: 05-26-2012 End: 05-31-2012 *Hepatic Function Panel Jayy Ga MD Start: 05-26-2012 End: 05-26-2012 Ecg routine ecg w/least 12 lds w/i&r Jayy Ga MD Start: 05-26-2012 End: 05-26-2012 Follow Up Appt 6 months Jayy Ga MD Start: 05-26-2012 End: 05-31-2012 Lipid 1996 panel - Serum or Plasma Jayy Ga MD Start: 05-26-2012 End: 05-31-2012 *Hepatic Function Panel Jayy Ga MD Start: 05-26-2012 End: 05-26-2012 Electrocardiogram, complete Jayy lantigua MD Start: 05-26-2012 End: 05-26-2012 Follow Up Appt 6 months Jayy Ga MD Start: 05-26-2012 End: 05-31-2012 Lipid panel [AGGREGATE] Jayy Ga MD Start: 11-12-2011 End: 11-12-2011 Ecg routine ecg w/least 12 lds w/i&r Jayy Ga MD Start: 11-12-2011 End: 11-12-2011 Follow Up Appt 6 months Jayy Ga MD Start: 11-12-2011 End: 11-12-2011 Follow Up Appt Other Jayy Ga MD Start: 11-12-2011 End: 11-12-2011 Electrocardiogram, complete Jayy lantigua MD Start: 11-12-2011 End: 11-12-2011 Follow Up Appt 6 months Jayy Ga MD Start: 11-12-2011 End: 11-12-2011 Follow Up Appt Other Jayy Ga MD Plan of Treatment Date Care Activity Detail Author Start: 12-28-2017 End: 07-02-2017 *Hepatic Function Panel *Hepatic Function Panel [facility] Work Phone: Start: 12-28-2017 End: 07-02-2017 Lipid 1996 panel *Lipid Profile CC PCP [facility] Work Phone: Start: 12-28-2017 End: 07-02-2017 *Hepatic Function Panel *Hepatic Function Panel [facility] Work Phone: Start: 12-28-2017 End: 07-02-2017 Lipid panel [AGGREGATE] *Lipid Profile CC PCP [facility] Work Phone: Start: 12-14-2017 End: 12-14-2017 Appointment Appointment [facility] Work Phone: Start: 06-24-2017 End: 07-02-2017 *Hepatic Function Panel *Hepatic Function Panel [facility] Work Phone: Start: 06-24-2017 End: 07-02-2017 Lipid 1996 panel *Lipid Profile CC PCP [facility] Work Phone: Start: 06-24-2017 End: 07-02-2017 *Hepatic Function Panel *Hepatic Function Panel [facility] Work Phone: Start: 06-24-2017 End: 07-02-2017 Lipid panel [AGGREGATE] *Lipid Profile CC PCP [facility] Work Phone: Start: 06-16-2017 End: 06-30-2017 *Hepatic Function Panel *Hepatic Function Panel [facility] Work Phone: Start: 06-16-2017 End: 06-16-2017 Follow Up Appt 6 months Follow Up Appt 6 months [facility] Work Phone: Start: 06-16-2017 End: 06-30-2017 Lipid 1996 panel *Lipid Profile CC PCP [facility] Work Phone: Start: 06-16-2017 End: 06-16-2017 MMM MMM [facility] Work Phone: Start: 06-16-2017 End: 06-30-2017 *Hepatic Function Panel *Hepatic Function Panel [facility] Work Phone: Start: 06-16-2017 End: 06-16-2017 Follow Up Appt 6 months Follow Up Appt 6 months [facility] Work Phone: Start: 06-16-2017 End: 06-30-2017 Lipid panel [AGGREGATE] *Lipid Profile CC PCP [facility] Work Phone: Start: 06-16-2017 End: 06-16-2017 MMM MMM [facility] Work Phone: Start: 12-04-2016 End: 12-16-2016 *Hepatic Function Panel *Hepatic Function Panel [facility] Work Phone: Start: 12-04-2016 End: 12-04-2016 Follow Up Appt 6 months Follow Up Appt 6 months [facility] Work Phone: Start: 12-04-2016 End: 12-16-2016 Lipid 1996 panel *Lipid Profile CC PCP [facility] Work Phone: Start: 12-04-2016 End: 12-04-2016 PFM PFM [facility] Work Phone: Start: 12-04-2016 End: 12-16-2016 *Hepatic Function Panel *Hepatic Function Panel [facility] Work Phone: Start: 12-04-2016 End: 12-04-2016 Follow Up Appt 6 months Follow Up Appt 6 months [facility] Work Phone: Start: 12-04-2016 End: 12-16-2016 Lipid panel [AGGREGATE] *Lipid Profile CC PCP [facility] Work Phone: Start: 12-04-2016 End: 12-04-2016 PFM PFM [facility] Work Phone: Start: 05-18-2016 End: 05-18-2016 Follow Up Appt 6 months Follow Up Appt 6 months [facility] Work Phone: Start: 05-18-2016 End: 05-18-2016 MMM MMM [facility] Work Phone: Start: 05-18-2016 End: 05-18-2016 Follow Up Appt 6 months Follow Up Appt 6 months [facility] Work Phone: Start: 05-18-2016 End: 05-18-2016 MMM MMM [facility] Work Phone: Start: 02-10-2016 End: 11-04-2016 *Hepatic Function Panel *Hepatic Function Panel [facility] Work Phone: Start: 02-10-2016 End: 11-04-2016 Lipid 1996 panel *Lipid Profile CC PCP [facility] Work Phone: Start: 02-10-2016 End: 11-04-2016 *Hepatic Function Panel *Hepatic Function Panel [facility] Work Phone: Start: 02-10-2016 End: 11-04-2016 Lipid panel [AGGREGATE] *Lipid Profile CC PCP [facility] Work Phone: Start: 11-18-2015 End: 11-18-2015 Ecg routine ecg w/least 12 lds w/i&r EKG (In office) [facility] Work Phone: Start: 11-18-2015 End: 11-18-2015 Follow Up Appt 6 months Follow Up Appt 6 months [facility] Work Phone: Start: 11-18-2015 End: 11-18-2015 PFM PFM [facility] Work Phone: Start: 11-18-2015 End: 11-18-2015 Electrocardiogram, complete EKG (In office) [facility] Work Phone: Start: 11-18-2015 End: 11-18-2015 Follow Up Appt 6 months Follow Up Appt 6 months [facility] Work Phone: Start: 11-18-2015 End: 11-18-2015 PFM PFM [facility] Work Phone: Start: 08-11-2015 End: 08-12-2015 *Hepatic Function Panel *Hepatic Function Panel [facility] Work Phone: Start: 08-11-2015 End: 08-12-2015 Lipid 1996 panel *Lipid Profile CC PCP [facility] Work Phone: Start: 08-11-2015 End: 08-12-2015 *Hepatic Function Panel *Hepatic Function Panel [facility] Work Phone: Start: 08-11-2015 End: 08-12-2015 Lipid panel [AGGREGATE] *Lipid Profile CC PCP [facility] Work Phone: Start: 05-20-2015 End: 05-20-2015 *Hepatic Function Panel *Hepatic Function Panel [facility] Work Phone: Start: 05-20-2015 End: 05-20-2015 Follow Up Appt 6 months Follow Up Appt 6 months [facility] Work Phone: Start: 05-20-2015 End: 05-20-2015 Lipid 1996 panel *Lipid Profile CC PCP [facility] Work Phone: Start: 05-20-2015 End: 05-20-2015 MMM MMM [facility] Work Phone: Start: 05-20-2015 End: 05-20-2015 *Hepatic Function Panel *Hepatic Function Panel [facility] Work Phone: Start: 05-20-2015 End: 05-20-2015 Follow Up Appt 6 months Follow Up Appt 6 months [facility] Work Phone: Start: 05-20-2015 End: 05-20-2015 Lipid panel [AGGREGATE] *Lipid Profile CC PCP [facility] Work Phone: Start: 05-20-2015 End: 05-20-2015 MMM MMM [facility] Work Phone: Start: 11-11-2014 End: 08-12-2015 *Hepatic Function Panel *Hepatic Function Panel [facility] Work Phone: Start: 11-11-2014 End: 08-12-2015 Lipid 1996 panel *Lipid Profile CC PCP [facility] Work Phone: Start: 11-11-2014 End: 08-12-2015 *Hepatic Function Panel *Hepatic Function Panel [facility] Work Phone: Start: 11-11-2014 End: 08-12-2015 Lipid panel [AGGREGATE] *Lipid Profile CC PCP [facility] Work Phone: Start: 08-27-2014 End: 08-27-2014 Follow Up Appt 6 months Follow Up Appt 6 months [facility] Work Phone: Start: 08-27-2014 End: 08-27-2014 PFM PFM [facility] Work Phone: Start: 08-27-2014 End: 08-27-2014 Follow Up Appt 6 months Follow Up Appt 6 months [facility] Work Phone: Start: 08-27-2014 End: 08-27-2014 PFM PFM [facility] Work Phone: Start: 05-11-2014 End: 05-19-2014 *Hepatic Function Panel *Hepatic Function Panel [facility] Work Phone: Start: 05-11-2014 End: 05-19-2014 Lipid 1996 panel *Lipid Profile CC PCP [facility] Work Phone: Start: 05-11-2014 End: 05-19-2014 *Hepatic Function Panel *Hepatic Function Panel [facility] Work Phone: Start: 05-11-2014 End: 05-19-2014 Lipid panel [AGGREGATE] *Lipid Profile CC PCP [facility] Work Phone: Start: 02-08-2014 End: 02-08-2014 Ecg routine ecg w/least 12 lds w/i&r EKG (In office) [facility] Work Phone: Start: 02-08-2014 End: 02-08-2014 Follow Up Appt 6 months Follow Up Appt 6 months [facility] Work Phone: Start: 02-08-2014 End: 02-08-2014 MMM MMM [facility] Work Phone: Start: 02-08-2014 End: 02-08-2014 Electrocardiogram, complete EKG (In office) [facility] Work Phone: Start: 02-08-2014 End: 02-08-2014 Follow Up Appt 6 months Follow Up Appt 6 months [facility] Work Phone: Start: 02-08-2014 End: 02-08-2014 MMM MMM [facility] Work Phone: Start: 11-11-2013 End: 11-15-2013 *Hepatic Function Panel *Hepatic Function Panel [facility] Work Phone: Start: 11-11-2013 End: 11-15-2013 Lipid 1996 panel *Lipid Profile CC PCP [facility] Work Phone: Start: 11-11-2013 End: 11-15-2013 *Hepatic Function Panel *Hepatic Function Panel [facility] Work Phone: Start: 11-11-2013 End: 11-15-2013 Lipid panel [AGGREGATE] *Lipid Profile CC PCP [facility] Work Phone: Start: 06-19-2013 End: 06-19-2013 Follow Up Appt 6 months Follow Up Appt 6 months [facility] Work Phone: Start: 06-19-2013 End: 06-19-2013 PFM PFM [facility] Work Phone: Start: 06-19-2013 End: 06-19-2013 Follow Up Appt 6 months Follow Up Appt 6 months [facility] Work Phone: Start: 06-19-2013 End: 06-19-2013 PFM PFM [facility] Work Phone: Start: 05-11-2013 End: 05-16-2013 *Hepatic Function Panel *Hepatic Function Panel [facility] Work Phone: Start: 05-11-2013 End: 05-16-2013 Lipid 1996 panel *Lipid Profile [facility] Work Phone: Start: 05-11-2013 End: 05-16-2013 *Hepatic Function Panel *Hepatic Function Panel [facility] Work Phone: Start: 05-11-2013 End: 05-16-2013 Lipid panel [AGGREGATE] *Lipid Profile [facility] Work Phone: Start: 12-01-2012 End: 12-01-2012 Ecg routine ecg w/least 12 lds w/i&r EKG (In office) [facility] Work Phone: Start: 12-01-2012 End: 12-01-2012 Follow Up Appt 6 months Follow Up Appt 6 months [facility] Work Phone: Start: 12-01-2012 End: 12-01-2012 MMM MMM [facility] Work Phone: Start: 12-01-2012 End: 12-01-2012 Electrocardiogram, complete EKG (In office) [facility] Work Phone: Start: 12-01-2012 End: 12-01-2012 Follow Up Appt 6 months Follow Up Appt 6 months [facility] Work Phone: Start: 12-01-2012 End: 12-01-2012 MMM MMM [facility] Work Phone: Start: 11-11-2012 End: 11-23-2012 *Hepatic Function Panel *Hepatic Function Panel [facility] Work Phone: Start: 11-11-2012 End: 11-23-2012 Lipid 1996 panel *Lipid Profile [facility] Work Phone: Start: 11-11-2012 End: 11-23-2012 *Hepatic Function Panel *Hepatic Function Panel [facility] Work Phone: Start: 11-11-2012 End: 11-23-2012 Lipid panel [AGGREGATE] *Lipid Profile [facility] Work Phone: Start: 05-26-2012 End: 05-31-2012 *Hepatic Function Panel *Hepatic Function Panel [facility] Work Phone: Start: 05-26-2012 End: 05-26-2012 Ecg routine ecg w/least 12 lds w/i&r EKG (In office) [facility] Work Phone: Start: 05-26-2012 End: 05-26-2012 Follow Up Appt 6 months Follow Up Appt 6 months [facility] Work Phone: Start: 05-26-2012 End: 05-31-2012 Lipid 1996 panel *Lipid Profile [facility] Work Phone: Start: 05-26-2012 End: 05-31-2012 *Hepatic Function Panel *Hepatic Function Panel [facility] Work Phone: Start: 05-26-2012 End: 05-26-2012 Electrocardiogram, complete EKG (In office) [facility] Work Phone: Start: 05-26-2012 End: 05-26-2012 Follow Up Appt 6 months Follow Up Appt 6 months [facility] Work Phone: Start: 05-26-2012 End: 05-31-2012 Lipid panel [AGGREGATE] *Lipid Profile [facility] Work Phone: Start: 11-12-2011 End: 11-12-2011 Ecg routine ecg w/least 12 lds w/i&r EKG (In office) [facility] Work Phone: Start: 11-12-2011 End: 11-12-2011 Follow Up Appt 6 months Follow Up Appt 6 months [facility] Work Phone: Start: 11-12-2011 End: 11-12-2011 Follow Up Appt Other Follow Up Appt Other [facility] Work Phone: Start: 11-12-2011 End: 11-12-2011 Electrocardiogram, complete EKG (In office) [facility] Work Phone: Start: 11-12-2011 End: 11-12-2011 Follow Up Appt 6 months Follow Up Appt 6 months [facility] Work Phone: Start: 11-12-2011 End: 11-12-2011 Follow Up Appt Other Follow Up Appt Other [facility] Work Phone: Patient Education [facility] Work Phone: Additional Source Comments FOR RECORDS PERTAINING TO PATIENTS WHO ARE OR HAVE BEEN ENROLLED IN A CHEMICAL DEPENDENCY/SUBSTANCEABUSE PROGRAM, SOME INFORMATION MAY BE OMITTED. This clinical summary was aggregated from multiple sources. Caution should be exercised in using it in the provision of clinical care. This summary normalizes information from multiple sources, and as a consequence, information in this document may materially change the coding, format and clinical context of patient data. In addition, data may be omitted in some cases. CLINICAL DECISIONS SHOULD BE BASED ON THE PRIMARY CLINICAL RECORDS. [facility] [employer] [facility]. provides no warranty or guarantee of the accuracy or completeness of information in this document.
[2023-10-28 12:18] LABS: Absolute Lymphocyte Count 1.43 X10^3/uL (0.83-4.51); Basophil# 0.04 X10^3/uL; Basophil% 0.8 % (0-1); Eosinophil# 0.15 X10^3/uL; Eosinophils% 2.9 % (0-5); Hematocrit 40.8 % (40-54); Lymphocyte # 1.43 X10^3/ul (0.83-4.51); Lymphocyte % 27.8 % (19-41); Mean Corp Hgb Conc 31.9 g/dL (32-36); Mean Corpuscular Hgb 29.3 pg (27.0-32.0); Mean Corpuscular Volume 91.9 fL (80-94); Mean Platelet Vol. 9.8 fl (6.2-12.0); Monocyte# 0.52 X10^3/uL; Monocyte% 10.1 % (0-10); NRBC Flagged by Analyzer 0 % (0-5); Neutrophil # 2.99 X10^3/uL (2.7-7.7); Platelet Count 334 K/mm3 (150-450); RBC Distribution Width CV 14.7 % (11.6-14.6); RBC Distribution Width SD 49.3 fl (35.1-43.9); Red Blood Count 4.44 M/mm3 (4.6-6.2); White Blood Count 5.2 K/mm3 (4.4-11.0)
[2023-10-28 13:31] LABS: ALB/GLOB Ratio 0.8 RATIO (0.9-2.4); AST(SGOT) 14 U/L (15-37); Alanine Aminotransfer ALT/SGPT 18 U/L (16-61); Albumin, Serum 3.5 g/dL (3.2-5.0); Alkaline Phosphatase 78 U/L (45-117); Anion Gap 4 (5-15); BUN 8 mg/dL (7-18); BUN/Creat Ratio 7.5 RATIO (10-20); Calcium,Total 9.1 mg/dL (8.5-10.1); Chloride 98 mmol/L (98-107); Cholesterol 212 mg/dL (200); Creatinine, Serum 1.07 mg/dL (0.70-1.30); EST Glomerular Filtration Rate 74 mL/min (>60); Est Glom Filt Rate - Afr Amer 90 mL/min (>60); Globulin 4.2 g/dL (2.2-4.2); Glucose 280 mg/dL (74-106); High Density Lipoprotein 42 mg/dL; Potassium 3.9 mmol/L (3.5-5.1); Protein, Total 7.7 g/dL (6.4-8.2); Sodium Level 132 mmol/L (136-145); Thyroid Stim Hormone (TSH) 1.51 uIU/mL (0.358-3.74); Triglycerides 187 mg/dL; Very Low Density Lipoprotein 37 mg/dL (5-40)
== END | disposition home or self-care (01) ==
LOC: POLAB3 10:36
PROVIDERS: PCP Family Medicine Geriatric Medicine; Visit Provider Family Medicine Geriatric Medicine
DX: E11.65 Type 2 diabetes mellitus with hyperglycemia (principal); I10 Essential (primary) hypertension; E78.5 Hyperlipidemia, unspecified
CPT/HCPCS: 36415; 80053; 80061; 83036; 84443; 85025

== ENCOUNTER → 2024-01-26 | Outpatient (CLI) | payer MEDICARE, MEDICAID, SELFPAY ==
[2024-01-26 11:37] LABS: Absolute Lymphocyte Count 1.43 X10^3/uL (0.83-4.51); Absolute Neutrophil Count 4.4 X10^3/uL (2.0-7.7); Basophil# 0.05 X10^3/uL; Basophil% 0.7 % (0-1); Eosinophil# 0.18 X10^3/uL; Eosinophils% 2.7 % (0-5); Hematocrit 37.2 % (40-54); Hemoglobin 11.8 g/dL (13.0-16.5); Lymphocyte # 1.43 X10^3/ul (0.83-4.51); Lymphocyte % 21.4 % (19-41); Mean Corp Hgb Conc 31.7 g/dL (32-36); Mean Corpuscular Hgb 29.4 pg (27.0-32.0); Mean Corpuscular Volume 92.8 fL (80-94); Mean Platelet Vol. 9.5 fl (6.2-12.0); Monocyte# 0.54 X10^3/uL; Monocyte% 8.1 % (0-10); NRBC Flagged by Analyzer 0 % (0-5); Neutrophil # 4.44 X10^3/uL (2.7-7.7); Neutrophil % 66.7 % (47-70); Platelet Count 310 K/mm3 (150-450); RBC Distribution Width CV 13.9 % (11.6-14.6); RBC Distribution Width SD 47.2 fl (35.1-43.9); Red Blood Count 4.01 M/mm3 (4.6-6.2); White Blood Count 6.7 K/mm3 (4.4-11.0)
[2024-01-26 12:17] LABS: Hemoglobin A1c 9.3 % (3.8-5.6)
[2024-01-26 14:23] LABS: ALB/GLOB Ratio 0.8 RATIO (0.9-2.4); AST(SGOT) 16 U/L (15-37); Alanine Aminotransfer ALT/SGPT 17 U/L (16-61); Albumin, Serum 3.3 g/dL (3.2-5.0); Alkaline Phosphatase 64 U/L (45-117); Anion Gap 4 (5-15); BUN 17 mg/dL (7-18); BUN/Creat Ratio 16.7 RATIO (10-20); Calcium,Total 8.4 mg/dL (8.5-10.1); Chloride 101 mmol/L (98-107); Cholesterol 120 mg/dL (200); Creatinine, Serum 1.02 mg/dL (0.70-1.30); EST Glomerular Filtration Rate 79 mL/min (>60); Est Glom Filt Rate - Afr Amer 95 mL/min (>60); Globulin 4.2 g/dL (2.2-4.2); Glucose 307 mg/dL (74-106); High Density Lipoprotein 41 mg/dL; Potassium 4.1 mmol/L (3.5-5.1); Protein, Total 7.5 g/dL (6.4-8.2); Sodium Level 134 mmol/L (136-145); Thyroid Stim Hormone (TSH) 0.96 uIU/mL (0.358-3.74); Triglycerides 92 mg/dL; Very Low Density Lipoprotein 18 mg/dL (5-40)
== END | disposition home or self-care (01) ==
LOC: POLAB3 10:51
PROVIDERS: PCP Family Medicine Geriatric Medicine; Visit Provider Family Medicine Geriatric Medicine
DX: E11.65 Type 2 diabetes mellitus with hyperglycemia (principal); E78.5 Hyperlipidemia, unspecified; I10 Essential (primary) hypertension
CPT/HCPCS: 36415; 80053; 80061; 83036; 84443; 85025

== ENCOUNTER → 2024-02-28 | Outpatient (CLI) | payer MEDICARE, MEDICAID, SELFPAY ==
[2024-02-28 10:28] LABS: Absolute Lymphocyte Count 1.39 X10^3/uL (0.83-4.51); Absolute Neutrophil Count 3.3 X10^3/uL (2.0-7.7); Basophil# 0.03 X10^3/uL; Basophil% 0.6 % (0-1); Eosinophil# 0.21 X10^3/uL; Eosinophils% 3.9 % (0-5); Hematocrit 38.1 % (40-54); Hemoglobin 12.3 g/dL (13.0-16.5); Lymphocyte # 1.39 X10^3/ul (0.83-4.51); Lymphocyte % 25.8 % (19-41); Mean Corp Hgb Conc 32.3 g/dL (32-36); Mean Corpuscular Hgb 30.4 pg (27.0-32.0); Mean Corpuscular Volume 94.3 fL (80-94); Mean Platelet Vol. 9.5 fl (6.2-12.0); Monocyte# 0.47 X10^3/uL; Monocyte% 8.7 % (0-10); NRBC Flagged by Analyzer 0 % (0-5); Neutrophil # 3.28 X10^3/uL (2.7-7.7); Neutrophil % 60.8 % (47-70); Platelet Count 226 K/mm3 (150-450); RBC Distribution Width SD 52.2 fl (35.1-43.9); Red Blood Count 4.04 M/mm3 (4.6-6.2); White Blood Count 5.4 K/mm3 (4.4-11.0)
[2024-02-28 11:01] LABS: Microalbumin,Random Urine 11.2 mg/L (NO RANGE EST.); Microalbumin:Creatinine Ratio 5.7 mg/g CRE (<30 mg/g CRE)
[2024-02-28 11:29] LABS: ALB/GLOB Ratio 0.9 RATIO (0.9-2.4); AST(SGOT) 18 U/L (15-37); Alanine Aminotransfer ALT/SGPT 17 U/L (16-61); Albumin, Serum 3.5 g/dL (3.2-5.0); Alkaline Phosphatase 53 U/L (45-117); Anion Gap 5 (5-15); BUN 13 mg/dL (7-18); BUN/Creat Ratio 12.4 RATIO (10-20); Calcium,Total 8.9 mg/dL (8.5-10.1); Chloride 103 mmol/L (98-107); Cholesterol 79 mg/dL (200); Creatinine, Serum 1.05 mg/dL (0.70-1.30); EST Glomerular Filtration Rate 76 mL/min (>60); Est Glom Filt Rate - Afr Amer 92 mL/min (>60); Glucose 141 mg/dL (74-106); High Density Lipoprotein 34 mg/dL; PSA,Total - Annual Screen 0.51 ng/mL (0.00-4.00); Potassium 4.1 mmol/L (3.5-5.1); Protein, Total 7.5 g/dL (6.4-8.2); Sodium Level 136 mmol/L (136-145); Thyroid Stim Hormone (TSH) 0.94 uIU/mL (0.358-3.74); Triglycerides 92 mg/dL; Very Low Density Lipoprotein 18 mg/dL (5-40)
[2024-02-28 12:31] LABS: Hemoglobin A1c 7.3 % (3.8-5.6)
== END | disposition home or self-care (01) ==
LOC: LAB 09:51
PROVIDERS: PCP Family Medicine Geriatric Medicine; Referring Provider Family Medicine Geriatric Medicine; Visit Provider Family Medicine Geriatric Medicine
DX: E11.65 Type 2 diabetes mellitus with hyperglycemia (principal); I10 Essential (primary) hypertension; Z12.5 Encounter for screening for malignant neoplasm of prostate; E78.5 Hyperlipidemia, unspecified
CPT/HCPCS: 36415; 80053; 80061; 82043; 82570; 83036; 84153; 84443; 85025; G0103

== ENCOUNTER → 2024-06-07 | Outpatient (CLI) | payer MEDICARE, MEDICAID, SELFPAY ==
[2024-06-07 10:16] LABS: Absolute Lymphocyte Count 1.31 X10^3/uL (0.83-4.51); Absolute Neutrophil Count 5.1 X10^3/uL (2.0-7.7); Basophil# 0.05 X10^3/uL; Basophil% 0.7 % (0-1); Eosinophil# 0.22 X10^3/uL; Eosinophils% 3.1 % (0-5); Hematocrit 38.7 % (40-54); Hemoglobin 12.3 g/dL (13.0-16.5); Lymphocyte # 1.31 X10^3/ul (0.83-4.51); Lymphocyte % 18.2 % (19-41); Mean Corp Hgb Conc 31.8 g/dL (32-36); Mean Corpuscular Hgb 30.4 pg (27.0-32.0); Mean Corpuscular Volume 95.6 fL (80-94); Mean Platelet Vol. 9.9 fl (6.2-12.0); Monocyte# 0.51 X10^3/uL; Monocyte% 7.1 % (0-10); NRBC Flagged by Analyzer 0 % (0-5); Neutrophil # 5.07 X10^3/uL (2.7-7.7); Neutrophil % 70.5 % (47-70); Platelet Count 223 K/mm3 (150-450); RBC Distribution Width CV 14.7 % (11.6-14.6); RBC Distribution Width SD 51.6 fl (35.1-43.9); Red Blood Count 4.05 M/mm3 (4.6-6.2); White Blood Count 7.2 K/mm3 (4.4-11.0)
[2024-06-07 10:59] LABS: ALB/GLOB Ratio 0.8 RATIO (0.9-2.4); AST(SGOT) 19 U/L (15-37); Alanine Aminotransfer ALT/SGPT 15 U/L (16-61); Albumin, Serum 3.4 g/dL (3.2-5.0); Alkaline Phosphatase 59 U/L (45-117); Anion Gap 4 (5-15); BUN 17 mg/dL (7-18); BUN/Creat Ratio 17.2 RATIO (10-20); Calcium,Total 8.8 mg/dL (8.5-10.1); Chloride 105 mmol/L (98-107); Cholesterol 91 mg/dL (200); Creatinine, Serum 0.99 mg/dL (0.70-1.30); EST Glomerular Filtration Rate 81 mL/min (>60); Est Glom Filt Rate - Afr Amer 98 mL/min (>60); Globulin 4.2 g/dL (2.2-4.2); Glucose 176 mg/dL (74-106); High Density Lipoprotein 39 mg/dL; Potassium 3.8 mmol/L (3.5-5.1); Protein, Total 7.6 g/dL (6.4-8.2); Sodium Level 139 mmol/L (136-145); Triglycerides 117 mg/dL; Very Low Density Lipoprotein 23 mg/dL (5-40)
== END | disposition home or self-care (01) ==
LOC: POLAB3 09:58
PROVIDERS: PCP Family Medicine Geriatric Medicine; Visit Provider Family Medicine Geriatric Medicine
DX: I10 Essential (primary) hypertension (principal); E11.65 Type 2 diabetes mellitus with hyperglycemia; E78.5 Hyperlipidemia, unspecified
CPT/HCPCS: 36415; 80053; 80061; 83036; 84443; 85025

== ENCOUNTER → 2024-09-05 | Outpatient (CLI) | payer MEDICARE, MEDICAID, SELFPAY ==
[2024-09-05 10:47] LABS: Absolute Lymphocyte Count 1.67 X10^3/uL (0.83-4.51); Absolute Neutrophil Count 4.9 X10^3/uL (2.0-7.7); Basophil# 0.04 X10^3/uL; Basophil% 0.5 % (0-1); Eosinophil# 0.32 X10^3/uL; Eosinophils% 4.3 % (0-5); Hematocrit 39.4 % (40-54); Hemoglobin 13.2 g/dL (13.0-16.5); Lymphocyte # 1.67 X10^3/ul (0.83-4.51); Lymphocyte % 22.5 % (19-41); Mean Corp Hgb Conc 33.5 g/dL (32-36); Mean Corpuscular Volume 95.6 fL (80-94); Mean Platelet Vol. 9.7 fl (6.2-12.0); Monocyte# 0.44 X10^3/uL; Monocyte% 5.9 % (0-10); NRBC Flagged by Analyzer 0 % (0-5); Neutrophil # 4.88 X10^3/uL (2.7-7.7); Platelet Count 279 K/mm3 (150-450); RBC Distribution Width SD 48.7 fl (35.1-43.9); Red Blood Count 4.12 M/mm3 (4.6-6.2); White Blood Count 7.4 K/mm3 (4.4-11.0)
[2024-09-05 11:18] LABS: ALB/GLOB Ratio 0.8 RATIO (0.9-2.4); AST(SGOT) 18 U/L (15-37); Alanine Aminotransfer ALT/SGPT 15 U/L (16-61); Albumin, Serum 3.4 g/dL (3.2-5.0); Alkaline Phosphatase 55 U/L (45-117); Anion Gap 6 (5-15); BUN 19 mg/dL (7-18); BUN/Creat Ratio 20.4 RATIO (10-20); Calcium,Total 8.6 mg/dL (8.5-10.1); Chloride 105 mmol/L (98-107); Cholesterol 104 mg/dL (200); Creatinine, Serum 0.93 mg/dL (0.70-1.30); EST Glomerular Filtration Rate 87 mL/min (>60); Est Glom Filt Rate - Afr Amer 105 mL/min (>60); Globulin 4.2 g/dL (2.2-4.2); Glucose 155 mg/dL (74-106); High Density Lipoprotein 36 mg/dL; Potassium 4.2 mmol/L (3.5-5.1); Protein, Total 7.6 g/dL (6.4-8.2); Sodium Level 139 mmol/L (136-145); Triglycerides 171 mg/dL; Very Low Density Lipoprotein 34 mg/dL (5-40)
== END | disposition home or self-care (01) ==
LOC: POLAB3 09:49
PROVIDERS: PCP Family Medicine Geriatric Medicine; Visit Provider Family Medicine Geriatric Medicine
DX: E11.65 Type 2 diabetes mellitus with hyperglycemia (principal); E78.5 Hyperlipidemia, unspecified; I10 Essential (primary) hypertension
CPT/HCPCS: 36415; 80053; 80061; 83036; 84443; 85025

== ENCOUNTER → 2024-12-06 | Outpatient (CLI) | payer MEDICARE, MEDICAID, SELFPAY ==
[2024-12-06 10:34] LABS: Absolute Lymphocyte Count 1.22 X10^3/uL (0.83-4.51); Basophil# 0.05 X10^3/uL; Basophil% 0.3 % (0-1); Eosinophil# 0.18 X10^3/uL; Eosinophils% 1.1 % (0-5); Hematocrit 39.3 % (40-54); Lymphocyte # 1.22 X10^3/ul (0.83-4.51); Lymphocyte % 7.4 % (19-41); Mean Corp Hgb Conc 33.1 g/dL (32-36); Mean Corpuscular Volume 96.8 fL (80-94); Mean Platelet Vol. 9.5 fl (6.2-12.0); Monocyte# 1.02 X10^3/uL; Monocyte% 6.2 % (0-10); NRBC Flagged by Analyzer 0.1 % (0-5); Neutrophil # 13.97 X10^3/uL (2.7-7.7); Neutrophil % 84.5 % (47-70); Platelet Count 250 K/mm3 (150-450); RBC Distribution Width CV 14.3 % (11.6-14.6); RBC Distribution Width SD 50.7 fl (35.1-43.9); Red Blood Count 4.06 M/mm3 (4.6-6.2); White Blood Count 16.5 K/mm3 (4.4-11.0)
[2024-12-06 14:38] LABS: ALB/GLOB Ratio 1.2 RATIO (0.9-2.4); AST(SGOT) 25 U/L (<=37); Alanine Aminotransfer ALT/SGPT 14 U/L (<=46); Albumin, Serum 4.2 g/dL (3.4-4.8); Alkaline Phosphatase 54 U/L (40-129); Anion Gap 12 (5-15); BUN 16 mg/dL (4-19); BUN/Creat Ratio 15.5 RATIO (10-20); Calcium 9.1 mg/dL (7.6-11.0); Carbon Dioxide 25.6 mmol/L (22.0-29.0); Chloride 97 mmol/L (96-108); Cholesterol 113 mg/dL (<=200); EST Glomerular Filtration Rate 85 (>60); Globulin 3.5 g/dL (2.2-4.2); Glucose 293 mg/dL (70-99); High Density Lipoprotein 47 mg/dL; Low Density Lipoprotein Calc. 46 mg/dL; Potassium 4.1 mmol/L (3.3-5.1); Protein, Total 7.6 g/dL (5.9-8.4); Sodium Level 135 mmol/L (133-145); Thyroid Stim Hormone (TSH) 0.675 uIU/mL (0.300-4.200); Total Bilirubin 0.96 mg/dL (0.00-1.30); Triglycerides 97 mg/dL; Very Low Density Lipoprotein 19 mg/dL (5-40); cholesterol:hdl ratio screen 2.39
[2024-12-06 19:18] LABS: Hemoglobin A1c 6.8 % (<=5.6)
== END | disposition home or self-care (01) ==
LOC: POLAB3 10:17
PROVIDERS: PCP Family Medicine Geriatric Medicine; Visit Provider Family Medicine Geriatric Medicine
DX: E11.65 Type 2 diabetes mellitus with hyperglycemia (principal); I10 Essential (primary) hypertension; E78.5 Hyperlipidemia, unspecified
CPT/HCPCS: 36415; 80053; 80061; 83036; 84443; 85025

== ENCOUNTER → 2025-07-24 | Outpatient (CLI) | payer MEDICARE, MEDICAID, SELFPAY ==
[2025-07-24 11:21] LABS: Hematocrit 41.4 % (40-54); Hemoglobin 14.0 g/dL (13.0-16.5); Immature Granulocytes Count 0.030 X10^3/uL (0.0-0.0); Mean Corp Hgb Conc 33.8 g/dL (32-36); Mean Corpuscular Volume 92.2 fL (80-94); Mean Platelet Vol. 9.6 fl (6.2-12.0); NRBC Flagged by Analyzer 0 % (0-5); Platelet Count 258 K/mm3 (150-450); RBC Distribution Width CV 13.2 % (11.6-14.6); RBC Distribution Width SD 43.5 fl (35.1-43.9); Red Blood Count 4.49 M/mm3 (4.6-6.2); White Blood Count 7.6 K/mm3 (4.4-11.0)
[2025-07-24 11:57] LABS: Creatinine, Urine (random) 30.30 mg/dL (39.00-259.00); Microalbumin,Random Urine < 12.0 mg/L (<20 mg/L)
[2025-07-24 12:05] LABS: Cholesterol 103 mg/dL (<=200); Low Density Lipoprotein Calc. 48 mg/dL; PSA,Total - Annual Screen 0.49 ng/mL (0.02-4.00); Triglycerides 79 mg/dL; Very Low Density Lipoprotein 16 mg/dL (5-40); cholesterol:hdl ratio screen 2.61
[2025-07-24 12:11] LABS: AST(SGOT) 21 U/L (<=37); Alanine Aminotransfer ALT/SGPT 19 U/L (<=46); Albumin, Serum 4.0 g/dL (3.4-4.8); Alkaline Phosphatase 86 U/L (40-129); Anion Gap 8 (5-15); BUN 13 mg/dL (4-19); BUN/Creat Ratio 13.7 RATIO (10-20); Calcium,Total 9.0 mg/dL (7.6-11.0); Carbon Dioxide 26.2 mmol/L (21.0-32.0); Chloride 99 mmol/L (98-108); Globulin 3.4 g/dL (2.2-4.2); Glucose 502 mg/dL (70-99); Potassium 4.6 mmol/L (3.3-5.1)
[2025-07-24 19:00] LABS: Xtra Tube Kwok EXTRA TUBE
== END | disposition home or self-care (01) ==
LOC: POLAB3 11:00
PROVIDERS: PCP Family Medicine Geriatric Medicine; Visit Provider Family Medicine Geriatric Medicine
DX: E78.5 Hyperlipidemia, unspecified (principal); E11.65 Type 2 diabetes mellitus with hyperglycemia; Z12.5 Encounter for screening for malignant neoplasm of prostate; I10 Essential (primary) hypertension; E03.9 Hypothyroidism, unspecified
CPT/HCPCS: 36415; 80053; 80061; 82043; 82570; 83036; 84153; 84443; 85025; G0103